=== PATIENT | male | born 1950 | race Caucasian/White ===

== ENCOUNTER 2017-03-24 13:27 | Inpatient (IN) | payer MEDICARE, OTHER ==
[~2017-03-24] VITALS: Ht 177.8 cm; Wt 166.2 kg
[2017-03-24] MEDS ORDERED: KETOROLAC 60 MG/2 ML VIAL (J1885) IM ONE (13:45)
[2017-03-24] MEDS ORDERED: CYCL10TA PO (14:48)
[2017-03-24] MEDS ORDERED: PERCOCET 5MG/325MG TAB As Ordered ONE (15:02)
[2017-03-24] MEDS ORDERED: PERCOCET 5MG/325MG TAB PO ONE (15:15)
[2017-03-24 17:50] LABS: MEAN CORPUSCULAR HEMOGLOBIN 30.4 pg (27.0-33.0); MEAN CORPUSCULAR HGB CONC 34.6 g/dl (32.0-36.5); RED CELL DISTRIBUTION WIDTH 13.5 % (11.5-14.5); WHITE BLOOD COUNT 9.1 K/mm3 (4.0-10.0)
[2017-03-24 17:58] LABS: INR 1.07
[2017-03-24 18:07] LABS: ANION GAP 8 MEQ/L (8-16); BLOOD UREA NITROGEN 28 MG/DL (7-18); CALCIUM LEVEL 8.4 MG/DL (8.8-10.2); CARBON DIOXIDE LEVEL 30 MEQ/L (21-32); CHLORIDE LEVEL 101 MEQ/L (98-107); CREATININE FOR GFR 0.84 MG/DL (0.70-1.30); GLOMERULAR FILTRATION RATE > 60.0 (>49); GLUCOSE, FASTING 122 MG/DL (80-110); POTASSIUM SERUM 4.3 MEQ/L (3.5-5.1); SODIUM LEVEL 139 MEQ/L (136-145)
[2017-03-24] MEDS ORDERED: MORPHINE 10 MG/ML 1ML VIAL IM ONE (19:30)
[2017-03-24] MEDS ORDERED: DEXTROSE 50% 50 ML SYRINGE IV PRN (21:00)
[2017-03-24] MEDS ORDERED: GLUCOSE 4 GM CHEW TABLET PO PRN (21:00)
[2017-03-24] MEDS ORDERED: GLUCAGON FOR INJ 1 MG VIAL (J1610) SC PRN (21:00)
[2017-03-24] MEDS ORDERED: VITA10005 PO (21:31)
[2017-03-24] MEDS ORDERED: METO50TA7 PO (21:31)
[2017-03-24] MEDS ORDERED: COLA100C5 PO (21:31)
[2017-03-24] MEDS ORDERED: LOSA100T36 PO (21:31)
[2017-03-24] MEDS ORDERED: INSULANT SC (21:31)
[2017-03-24] MEDS ORDERED: ASCO500T PO (21:31)
[2017-03-24] MEDS ORDERED: LIVA4TAB PO (21:31)
[2017-03-24] MEDS ORDERED: B-12100T2 PO (21:31)
[2017-03-24] MEDS ORDERED: GABA-282 PO (21:31)
[2017-03-24] MEDS ORDERED: NOVOINJ3 SQ (21:31)
[2017-03-24] MEDS ORDERED: NAPR500T3 PO (21:31)
[2017-03-24] MEDS ORDERED: FURO40TA2 PO (21:31)
[2017-03-24] MEDS ORDERED: OMEP20CA3 PO (21:31)
[2017-03-24] MEDS ORDERED: HYDR-3713 PO (21:31)
[2017-03-24] MEDS ORDERED: ASPI81TAEC PO (21:31)
[2017-03-24] MEDS ORDERED: FINA5TAB2 PO (21:31)
[2017-03-24] MEDS ORDERED: D31000TA PO (21:31)
[2017-03-24] MEDS ORDERED: METF10004 PO (21:31)
[2017-03-24] MEDS ORDERED: SERT-138 PO (21:31)
[2017-03-24] MEDS ORDERED: TERA10CA3 PO (21:31)
[2017-03-24] MEDS ORDERED: [UNRECOGNIZED DRUG - CODE] OU (21:31)
--- NOTE | 2017-03-24 22:05 | HPEPDOC ---
General Date of Admission Mar 24, 2017 at 20:52 Chief Complaint The patient is a 67-year-old male Presented to the ER with complaints of worsening back pain preventing him from walking. History of Present Illness Patient is a 67 year old male with a PMHx of IDDM2, HTN, DLP, BPH, Neuropathy, Chronic lower back pain, Depression / Anxiety and GERD who presented to the ER with worsening back pain. Patient notes that yesterday he was at a wedding and was walking more than usual with his walker. That evening he noted some pain in his back that he tried to sleep off. This morning he awoke with severe back pain that prevented him from getting out of bed. He notes that the pain occurs in his lower pain, rated the pain as aa 10/10, sharp, continuous pain, non-radiating, no alleviating factors, but aggravated with movement. He denies any motor weakness of his legs or sensory deficits. He denies any incontinence of stool or urine. He denies nausea, vomiting, chest pain, shortness of breath, cough, palpitations , abdominal pain, constipation, diarrhea or dysuria. He denies any fever or chills. He denies a headache. He denies any change in appetite or recent weight change. Home Medications Scheduled Acetaminophen/Hydrocodone (Hydrocodone/Acetaminophen 5-325 mg) 1 Tab Tab, 2 TAB PO QID, (Reported) MDD 4 Ascorbic Acid (Ascorbic Acid) 500 Mg Tab, 500 MG PO DAILY, (Reported) Aspirin (Aspirin EC) 81 Mg Tabec, 81 MG PO DAILY, (Reported) Carboxymethylcellulose Sodium (Carboxymethylcellulose So) 1 Gra Gra, 1 % OU BID, (Reported) Cholecalciferol (D3) 1,000 Unit Tab, 1,000 UNIT PO DAILY, (Reported) Cyanocobalamin (B-12) 100 Mcg Tab, 100 MCG PO BID, (Reported) Docusate Sodium (Colace) 100 Mg Cap, 100 MG PO BID, (Reported) Finasteride (Finasteride) 5 Mg Tab, 5 MG PO DAILY, (Reported) Furosemide (Furosemide) 40 Mg Tab, 60 MG PO DAILY, (Reported) Gabapentin (Gabapentin) 300 Mg Cap, 1,200 MG PO TID, (Reported) Insulin Glargine (Lantus) 1 Units/0.01 Ml Susp, 62 UNITS SC QHS, (Reported) Losartan Potassium (Losartan Potassium) 100 Mg Tab, 100 MG PO DAILY, (Reported) Metformin Hydrochloride (Metformin HCl) 1,000 Mg Tab, 1,000 MG PO BID, (Reported ) Metoprolol Tartrate (Metoprolol Tartrate) 50 Mg Tab, 25 MG PO BID, (Reported) Naproxen (Naproxen) 500 Mg Tab, 500 MG PO BID, (Reported) Omeprazole (Omeprazole) 20 Mg Cap, 40 MG PO DAILY, (Reported) Pitavastatin Calcium (Livalo) 4 Mg Tab, 4 MG PO QHS, (Reported) Sertraline HCl (Sertraline HCl) 100 Mg Tab, 100 MG PO QHS, (Reported) Terazosin Hcl (Terazosin HCl) 10 Mg Cap, 10 MG PO DAILY, (Reported) Vitamin E (Vitamin E) 1,000 Unit Cap, 1,000 UNIT PO DAILY, (Reported) Scheduled PRN Cyclobenzaprine HCl (Cyclobenzaprine HCl) 10 Mg Tab, 10 MG PO TID PRN for MUSCLE SPASMS Insulin Aspart (Novolog Flexpen) 100 Unit/Ml Inj, 1 UNITS SUBQ AC PRN for ELEVATED GLUCOSE, (Reported) Allergies Coded Allergies: No Known Allergies (Unverified , 03/24/17) Past Medical History Medical History IDDM2, HTN, DLP, BPH, Neuropathy, Chronic lower back pain, Depression / Anxiety and GERD Surgical History None reported Family History - Non-contributory Social History - Denies the use of illicit drugs; Social alcohol use; Quit smoking 40 years ago ; smoker of 20 years at 1 ppd - Denies recent travel or sick contacts - Lives with - 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; 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 Review of Symptoms Other systems 10 point review of systems complete; negative otherwise stated in HPI Vital Signs - Vitals: BP 133/78, HR 85, RR 16, Sat 96%RA, Temp 99.2F - General: Lying in bed, No acute distress, Speaking in full sentences, AAOx3 - HEENT: NC, AT, PERRLA, EOMI - CVS: RRR, +S1S2 - Lungs: Fair air entry bilaterally, No appreciable wheezing or crackles - Abdomen: Soft, Non-distended, Non-tender, + Bowel sounds x 4 - Extremities: + PPx4, No lower extremity edema, No calf tenderness - Neuro: Moves all four extremities; reduced movement of bilateral upper legs 2/ 2 pain; 5/5 at feet bilateraly -- Sensation intact bilaterally - Skin: No visible rashes Laboratory Data Labs 24H Laboratory Tests 2 03/24/17 17:34: Prothrombin Time 14.1, Prothromb Time International Ratio 1.07, Urine Appearance HAZY, Urine Color KATINA, Urine pH 5.0, Urine Specific [place] 1.031, Urine Protein 1+H, Urine Glucose (UA) NEGATIVE, Urine Ketones NEGATIVE, Urine Urobilinogen 2.0H, Urine Bilirubin NEGATIVE, Urine Leukocyte Esterase TRACEH, Urine Blood NEGATIVE, Urine Nitrite NEGATIVE, Urine WBC (Auto) 4H, Urine RBC ( Auto) 6H, Urine Hyaline Casts (Auto) 0, Urine Bacteria (Auto) NEGATIVE, Urine Squamous Epithelial Cells 4, Urine Mucus (Auto) MODERATE, Urine Sperm (Auto) , Anion Gap 8, Glomerular Filtration Rate > 60.0, Blood Urea Nitrogen 28H, Creatinine 0.84, Sodium Level 139, Potassium Level 4.3, Chloride Level 101, Carbon Dioxide Level 30, Calcium Level 8.4L CBC/BMP Laboratory Tests 03/24/17 17:34 Red Blood Count 3.87 L, Mean Corpuscular Volume 88.0, Mean Corpuscular Hemoglobin 30.4, Mean Corpuscular Hemoglobin Concent 34.6, Red Cell Distribution Width 13.5, Calcium Level 8.4 L Plan / VTE VTE Prophylaxis Ordered?: Yes Plan Plan Acute on chronic intractable back pain - likely 2/2 acute exacerbation after over exerting himself, less likely 2/2 acute discitis - Presented with worsening back pain, unable to ambulate - Physical without any focal motor weakness of sensory deficit - No incontinence of stool or urine - No fevers - No leukocytosis - CT Lumbar spine w/o contrast: advanced multilevel degenerative changes, change at L3/4, irregular destructive changes, acute vs. chronic discitis, no further acute fx/compression injury - Will c/w pain control for now - Will order physical therapy for evaluation and treatment Normocytic anemia - No baseline available - Will monitor for now IDDM2 - c/w ISS and Levemir 35 QHS HTN - c/w Furosemide, Losartan and Metoprolol tartrate DLP - c/w Atorvastatin (outpatient pitavastatin) BPH - c/ w Finasteride and Terazosin Neuropathy - c/w Gabapentin Depression / Anxiety - c/w Sertraline GERD - c/w Omeprazole DVT prophylaxis - Will start BAUTISTA Guzmán MD Mar 24, 2017 22:05
[2017-03-24] MEDS: PERCOCET 5MG/325MG TAB PO PRN (22:16)
[2017-03-24 22:30] VITALS: BP 142/69
[2017-03-24] MEDS: TERAZOSIN 5 MG CAP PO SCH (23:46)
[2017-03-24] MEDS: SERTRALINE 100 MG TAB PO SCH (23:46)
[2017-03-24] MEDS: ATORVASTATIN 10 MG TAB PO SCH (23:47)
[2017-03-24] MEDS: HumaLOG INSULIN (NovoLOG) PER UNIT SC SCH (23:47)
[2017-03-24] MEDS: METOPROLOL TART 25 MG TABLET PO SCH (23:47)
[2017-03-24] MEDS: LEVEMIR (INSULIN DETEMIR) 1 UNITS/0.01ML SC SCH (23:48)
[2017-03-25] MEDS: GABAPENTIN 300 MG CAP PO SCH ×3 (01:32→20:32)
[2017-03-25 02:00] VITALS: BP 125/68
[2017-03-25] MEDS: PERCOCET 5MG/325MG TAB PO PRN ×5 (02:14→20:33)
[2017-03-25 06:00] VITALS: BP 139/74
[2017-03-25 07:25] LABS: BASO % 0.3 % (0.0-1.0); EOS % 0.5 % (0.0-3.0); LARGE UNSTAINED CELL # 0.1 K/mm3 (0.0-0.4); LYMPH # 0.9 K/mm3 (1.5-4.5); MEAN CORPUSCULAR HEMOGLOBIN 29.4 pg (27.0-33.0); MEAN CORPUSCULAR HGB CONC 33.6 g/dl (32.0-36.5); MEAN CORPUSCULAR VOLUME 87.5 fl (80.0-96.0); MONO # 0.6 K/mm3 (0.0-0.8); MONO % 6.8 % (0.0-5.0); NEUTROPHILS # 7.6 K/mm3 (1.8-7.7); NEUTROPHILS % 82.4 % (36.0-66.0); PLATELET COUNT, AUTOMATED 175 k/mm3 (150-450); RED CELL DISTRIBUTION WIDTH 13.5 % (11.5-14.5); WHITE BLOOD COUNT 9.3 K/mm3 (4.0-10.0)
[2017-03-25] MEDS: HumaLOG INSULIN (NovoLOG) PER UNIT SC SCH ×4 (07:30→20:37)
[2017-03-25 07:40] LABS: ALBUMIN 3.3 GM/DL (3.2-5.2); ALBUMIN/GLOBULIN RATIO 0.87 (1.00-1.93); ALKALINE PHOSPHATASE 79 U/L (45-117); ALT/SGPT 18 U/L (12-78); ANION GAP 5 MEQ/L (8-16); AST/SGOT 14 U/L (15-37); BILIRUBIN,TOTAL 1.1 MG/DL (0.2-1.0); BLOOD UREA NITROGEN 22 MG/DL (7-18); CARBON DIOXIDE LEVEL 32 MEQ/L (21-32); CHLORIDE LEVEL 99 MEQ/L (98-107); CREATININE FOR GFR 0.74 MG/DL (0.70-1.30); GLOMERULAR FILTRATION RATE > 60.0 (>49); GLUCOSE, FASTING 159 MG/DL (80-110); POTASSIUM SERUM 3.9 MEQ/L (3.5-5.1); SODIUM LEVEL 136 MEQ/L (136-145); TOTAL PROTEIN 7.1 GM/DL (6.4-8.2)
--- NOTE | 2017-03-25 07:50 | IPN ---
DATE: 03/25/2017 A 67-year-old gentleman seen at bedside. He follows with [facility], has had chronic issues with lumbar back pain, repeated strains and likely due to his morbid obesity, and he says that he does have some degenerative issues with his back, osteoarthritis. Basically, he was admitted last night because he was unable to climb his five steps into his house and his insisted that we keep him for better pain control. He feels that he is under better control today. He denies chest pain, shortness of breath, abdominal pain. No nausea or vomiting. He denies any radiation of pain or radiculopathy. No saddle paresthesias. Bowel movements are regular. He is voiding fine. He denies any bladder or bowel incontinence. OBJECTIVE: Temperature is 98.9, pulse 74, respiratory rate 18, blood pressure 139/74, SPO2 is 95% on room air. General: The patient appears to be in no acute distress. He is alert, pleasant. HEENT: Unremarkable. Lungs: Clear. Heart: Regular rate and rhythm. Abdomen is obese, soft, nontender, nondistended with positive bowel sounds. No masses, no rebound. Extremities: No edema. No calf tenderness. No motor or sensory deficits. ASSESSMENT AND PLAN: 1. Intractable/acute on chronic low back pain likely from acute exacerbation. He does not demonstrate any motor or sensory deficits. No bladder or bowel incontinence. He is afebrile. Has had no leukocytosis. Previous CT lumbar spine with contrast: Advanced multilevel degenerative changes, change of L3-L4, irregular destructive changes, acute versus chronic diskitis but no further acute fracture or compression injury. I am doubtful that this is a diskitis since the patient is afebrile. He has had a normal white count. His sedimentation rate and C-reactive protein (CRP) do appear to be slightly elevated; however, symptom ramesh, he is much improved today. I would like to see how he is getting along. If he does well with physical therapy, his labs look good, will likely discharge him home with services versus watching him another 24 hours. 2. Chronic anemia. Continue to monitor hemoglobin and hematocrit. 3. Diabetes. Continue with sliding scale insulin coverage and Levemir. 4. Hypertension. Continue metoprolol, losartan, furosemide. 5. Dyslipidemia. Continue Lipitor. 6. BPH. Continue finasteride, terazosin. 7. Chronic neuropathy, likely related to diabetes. Continue with gabapentin. 8. Depression, anxiety, stable on Zoloft. 9. Gastroesophageal reflux disease (GERD). Continue omeprazole. 10. Deep vein thrombosis (DVT) prophylaxis. Lovenox. DISPOSITION: Will see how he does with physical therapy. Repeat his labs today and go from there.
[2017-03-25] MEDS: METOPROLOL TART 25 MG TABLET PO SCH ×2 (08:01→20:35)
[2017-03-25] MEDS: FINASTERIDE 5 MG TAB PO SCH (08:01)
[2017-03-25] MEDS: OMEPRAZOLE 20 MG CAP PO SCH (08:01)
[2017-03-25] MEDS: LOSARTAN 50 MG TAB PO SCH (08:01)
[2017-03-25] MEDS: FUROSEMIDE 40 MG TAB PO SCH (08:03)
[2017-03-25] MEDS: ENOXAPARIN 40 MG/0.4 ML SYRINGE (J1650) SC SCH (08:04)
[2017-03-25 10:00] VITALS: BP 118/65
[2017-03-25] MEDS: CYCLOBENZAPRINE 10 MG TAB PO PRN ×2 (11:56→20:32)
--- NOTE | 2017-03-25 13:00 | REP ---
Clinical: Back pain. Technique: Axial noncontrast images from T9 through mid sacrum with coronal and sagittal re-formations. Comparison: None. Findings: Straightening of normal lordosis and advanced multilevel degenerative disc osteophyte complexes are noted throughout the visualized lower thoracic through lumbosacral spine. Findings include bridging osteophytes, endplate sclerosis with disc space narrowing and hypertrophic facet changes. There is no evidence for acute fracture / compression injury or subluxation. A somewhat mottled destructive appearance to the endplates at the L3-L4 level are appreciated with contour abnormality and sclerotic changes to the residual margins as well as somewhat irregular widening to the intervening disc space. Findings suggest acute and/or chronic diskitis and should be correlated clinically. The surrounding paraspinous and paravertebral soft tissues are grossly unremarkable. No significant swelling, fluid collection or mass is appreciated. Atherosclerotic changes to the visualized aorta identified without aneurysm. Impression: 1. Irregular, destructive changes at the L3-L4 level as described above suggesting acute and/or chronic diskitis. Correlation is recommended. Consider MRI with contrast if necessary. 2. Remainder of the examination demonstrates advanced multilevel degenerative changes as described above. No acute compression fracture or subluxation appreciated. Signed by Damon Asher MD 03/25/2017 12:52 P
[2017-03-25 14:00] VITALS: BP 118/70
[2017-03-25 18:00] VITALS: BP 140/61
[2017-03-25 20:13] VITALS: BP 143/61
[2017-03-25] MEDS: ATORVASTATIN 10 MG TAB PO SCH (20:32)
[2017-03-25] MEDS: SERTRALINE 100 MG TAB PO SCH (20:32)
[2017-03-25] MEDS: TERAZOSIN 5 MG CAP PO SCH (20:34)
[2017-03-25] MEDS: LEVEMIR (INSULIN DETEMIR) 1 UNITS/0.01ML SC SCH (20:36)
[2017-03-26] MEDS: PERCOCET 5MG/325MG TAB PO PRN ×5 (01:26→19:28)
[2017-03-26 02:00] VITALS: BP 145/69
[2017-03-26] MEDS: CYCLOBENZAPRINE 10 MG TAB PO PRN (05:52)
[2017-03-26 06:00] VITALS: BP 159/79
[2017-03-26 07:24] LABS: BASO % 0.4 % (0.0-1.0); EOS # 0.1 K/mm3 (0.0-0.50); EOS % 1.7 % (0.0-3.0); LARGE UNSTAINED CELL # 0.1 K/mm3 (0.0-0.4); LARGE UNSTAINED CELL % 1.4 % (0.0-4.0); LYMPH # 0.9 K/mm3 (1.5-4.5); LYMPH % 11.5 % (24.0-44.0); MEAN CORPUSCULAR HEMOGLOBIN 29.6 pg (27.0-33.0); MEAN CORPUSCULAR HGB CONC 33.6 g/dl (32.0-36.5); MEAN CORPUSCULAR VOLUME 87.9 fl (80.0-96.0); MONO # 0.4 K/mm3 (0.0-0.8); MONO % 5.8 % (0.0-5.0); NEUTROPHILS # 5.8 K/mm3 (1.8-7.7); NEUTROPHILS % 79.1 % (36.0-66.0); PLATELET COUNT, AUTOMATED 182 k/mm3 (150-450); RED CELL DISTRIBUTION WIDTH 13.6 % (11.5-14.5); WHITE BLOOD COUNT 7.3 K/mm3 (4.0-10.0)
[2017-03-26 07:48] LABS: ALBUMIN 3.2 GM/DL (3.2-5.2); ALBUMIN/GLOBULIN RATIO 0.94 (1.00-1.93); ALKALINE PHOSPHATASE 85 U/L (45-117); ALT/SGPT 18 U/L (12-78); ANION GAP 6 MEQ/L (8-16); AST/SGOT 14 U/L (15-37); BILIRUBIN,TOTAL 0.8 MG/DL (0.2-1.0); BLOOD UREA NITROGEN 18 MG/DL (7-18); CALCIUM LEVEL 9.1 MG/DL (8.8-10.2); CARBON DIOXIDE LEVEL 33 MEQ/L (21-32); CHLORIDE LEVEL 100 MEQ/L (98-107); CREATININE FOR GFR 0.66 MG/DL (0.70-1.30); GLOMERULAR FILTRATION RATE > 60.0 (>49); GLUCOSE, FASTING 122 MG/DL (80-110); POTASSIUM SERUM 4.2 MEQ/L (3.5-5.1); SODIUM LEVEL 139 MEQ/L (136-145); TOTAL PROTEIN 6.6 GM/DL (6.4-8.2)
[2017-03-26] MEDS: OMEPRAZOLE 20 MG CAP PO SCH (08:27)
[2017-03-26] MEDS: HumaLOG INSULIN (NovoLOG) PER UNIT SC SCH ×4 (08:27→20:43)
[2017-03-26] MEDS: LOSARTAN 50 MG TAB PO SCH (08:27)
[2017-03-26] MEDS: FINASTERIDE 5 MG TAB PO SCH (08:27)
[2017-03-26] MEDS: GABAPENTIN 300 MG CAP PO SCH ×2 (08:28→20:43)
[2017-03-26] MEDS: METOPROLOL TART 25 MG TABLET PO SCH ×2 (08:28→20:45)
[2017-03-26] MEDS: FUROSEMIDE 40 MG TAB PO SCH (08:29)
[2017-03-26] MEDS: ENOXAPARIN 40 MG/0.4 ML SYRINGE (J1650) SC SCH (09:00)
[2017-03-26 10:00] VITALS: BP 133/73
[2017-03-26] MEDS: MORPHINE 15 MG SA TAB PO SCH ×2 (10:32→20:44)
[2017-03-26] MEDS: SENOKOT S TAB PO SCH ×2 (10:32→20:44)
--- NOTE | 2017-03-26 13:32 | IPN ---
DATE: 03/26/2017 Mr. Mark is having continuing pain today. No chest pain, no shortness of breath. He does get temporary relief from Percocet, it is not long lasting. Temperature is 98.4, pulse 81, respiratory rate 18, blood pressure 159/79, 95% on room air. Intake and output notable for a negative fluid balance of -515. Now bowel movements noted since his arrival. Body mass index (BMI) 54.6. He is awake, appropriately interactive, somewhat uncomfortable. Mucous membranes moist. Neck thick. Breathing is symmetrical and diminished, rested. No accessory muscle use. Heart is regular rate and rhythm. Abdomen is soft, doughy nontender. Moving all four extremities. Strength is grossly symmetrical. Sensation is grossly intact. White cell count 7.3, hemoglobin 11, platelets 182, BUN 18, creatinine 0.66. My assessment is as follows: This is a 67-year-old with acute on chronic back pain without any obvious neurologic deficits. Plan is as follows: 1. Musculoskeletal. Plan is for an MRI when open MRI is available. Continues with physical therapy. I did increase his pain medication to include long acting morphine. He is somewhat narcotic resistant based on his home use of opiates. 2. Patient has chronic anemia. 3. Patient has diabetes on sliding insulin and Levemir. 4. Patient has hypertension. 5. Patient has dyslipidemia. 6. Patient has benign prostatic hypertrophy (BPH). 7. Patient has chronic neuropathy on gabapentin. I have discussed the case with the patient and family at the bedside.
[2017-03-26 14:00] VITALS: BP 102/59
[2017-03-26 16:00] VITALS: BP 124/66
[2017-03-26] MEDS: MOM 30ML SUSPENSION UDC PO PRN (20:42)
[2017-03-26] MEDS: ATORVASTATIN 10 MG TAB PO SCH (20:43)
[2017-03-26] MEDS: LEVEMIR (INSULIN DETEMIR) 1 UNITS/0.01ML SC SCH (20:43)
[2017-03-26] MEDS: TERAZOSIN 5 MG CAP PO SCH (20:44)
[2017-03-26] MEDS: SERTRALINE 100 MG TAB PO SCH (20:44)
[2017-03-26 22:00] VITALS: BP 154/96
[2017-03-27] MEDS: CYCLOBENZAPRINE 10 MG TAB PO PRN (00:07)
[2017-03-27] MEDS: PERCOCET 5MG/325MG TAB PO PRN ×5 (00:07→22:10)
[2017-03-27 02:00] VITALS: BP 151/67
[2017-03-27 06:00] VITALS: BP 153/73
[2017-03-27 07:06] LABS: BASO % 0.2 % (0.0-1.0); EOS # 0.1 K/mm3 (0.0-0.50); LARGE UNSTAINED CELL # 0.2 K/mm3 (0.0-0.4); LARGE UNSTAINED CELL % 2.3 % (0.0-4.0); LYMPH # 0.9 K/mm3 (1.5-4.5); LYMPH % 13.6 % (24.0-44.0); MEAN CORPUSCULAR HEMOGLOBIN 29.6 pg (27.0-33.0); MEAN CORPUSCULAR HGB CONC 33.8 g/dl (32.0-36.5); MEAN CORPUSCULAR VOLUME 87.6 fl (80.0-96.0); MONO # 0.4 K/mm3 (0.0-0.8); MONO % 6.2 % (0.0-5.0); NEUTROPHILS % 75.7 % (36.0-66.0); PLATELET COUNT, AUTOMATED 213 k/mm3 (150-450); RED CELL DISTRIBUTION WIDTH 13.2 % (11.5-14.5); WHITE BLOOD COUNT 6.6 K/mm3 (4.0-10.0)
[2017-03-27 07:27] LABS: ALBUMIN 2.8 GM/DL (3.2-5.2); ALKALINE PHOSPHATASE 78 U/L (45-117); ALT/SGPT 16 U/L (12-78); ANION GAP 9 MEQ/L (8-16); AST/SGOT 11 U/L (15-37); BILIRUBIN,TOTAL 0.8 MG/DL (0.2-1.0); BLOOD UREA NITROGEN 17 MG/DL (7-18); CALCIUM LEVEL 9.1 MG/DL (8.8-10.2); CARBON DIOXIDE LEVEL 30 MEQ/L (21-32); CHLORIDE LEVEL 100 MEQ/L (98-107); CREATININE FOR GFR 0.59 MG/DL (0.70-1.30); GLOMERULAR FILTRATION RATE > 60.0 (>49); GLUCOSE, FASTING 140 MG/DL (80-110); MAGNESIUM LEVEL 2.1 MG/DL (1.8-2.4); POTASSIUM SERUM 4.1 MEQ/L (3.5-5.1); SODIUM LEVEL 139 MEQ/L (136-145); TOTAL PROTEIN 6.8 GM/DL (6.4-8.2)
[2017-03-27] MEDS: HumaLOG INSULIN (NovoLOG) PER UNIT SC SCH ×4 (08:53→21:00)
[2017-03-27] MEDS: FUROSEMIDE 40 MG TAB PO SCH (08:54)
[2017-03-27] MEDS: SENOKOT S TAB PO SCH ×2 (08:54→21:26)
[2017-03-27] MEDS: OMEPRAZOLE 20 MG CAP PO SCH (08:54)
[2017-03-27] MEDS: METOPROLOL TART 25 MG TABLET PO SCH ×2 (08:54→21:27)
[2017-03-27] MEDS: ENOXAPARIN 40 MG/0.4 ML SYRINGE (J1650) SC SCH (08:54)
[2017-03-27] MEDS: FINASTERIDE 5 MG TAB PO SCH (08:57)
[2017-03-27] MEDS: GABAPENTIN 300 MG CAP PO SCH ×2 (08:57→21:26)
[2017-03-27] MEDS: MORPHINE 15 MG SA TAB PO SCH ×2 (08:57→21:28)
[2017-03-27] MEDS: LOSARTAN 50 MG TAB PO SCH (08:57)
[2017-03-27 14:00] VITALS: BP 121/56
[2017-03-27] MEDS ORDERED: MAGNESIUM CITRATE 300 ML BTL PO ONE (14:00)
--- NOTE | 2017-03-27 14:06 | IPN ---
DATE: 03/27/2017 Pain is better controlled from yesterday, but he still has discomfort. He has not moved his bowels and is requesting further assistance with that. PHYSICAL EXAMINATION: Temperature is 96.9, pulse 82, respiratory rate 18, blood pressure 153/73. He is awake, appropriately interactive, pleasantly conversant. Good historian. Heart is distant sounding. Normal S1, S2. Breathing is symmetrical and rested. I:E ratio is 1:3. No costovertebral angle tenderness. No sacral emergency department . Abdomen is soft, doughy nontender. Rectal examination shows good rectal tone. Sensation is intact. White cell count 6.6, hemoglobin 11.4, BUN 17, creatinine 0.59, C-reactive protein is increased to 17. My assessment is as follows: This is a 67-year-old with acute on chronic back pain without any obvious neurologic deficits. Plan is as follows: 1. Musculoskeletal. Plan is for open MRI on 03/29/2017. There are no acute neurologic deficits noted. We will continue with pain management as currently ordered. 2. Patient has constipation and has magnesium citrate. Continue his currently regimen. 3. Patient has diabetes on sliding insulin and Levemir. 4. Patient has hypertension. 5. Patient has dyslipidemia. 6. Patient has benign prostatic hypertrophy (BPH). 7. Patient has chronic neuropathy on gabapentin.
[2017-03-27 18:00] VITALS: BP 165/90
[2017-03-27 20:00] VITALS: BP 123/69
[2017-03-27] MEDS: SERTRALINE 100 MG TAB PO SCH (21:26)
[2017-03-27] MEDS: ATORVASTATIN 10 MG TAB PO SCH (21:26)
[2017-03-27] MEDS: TERAZOSIN 5 MG CAP PO SCH (21:27)
[2017-03-27] MEDS: LEVEMIR (INSULIN DETEMIR) 1 UNITS/0.01ML SC SCH (21:28)
[2017-03-28] VITALS: BP 121/70
[2017-03-28 04:00] VITALS: BP 142/62
[2017-03-28] MEDS: PERCOCET 5MG/325MG TAB PO PRN ×4 (06:17→22:44)
[2017-03-28] MEDS: MOM 30ML SUSPENSION UDC PO PRN (06:25)
[2017-03-28 06:52] LABS: BASO % 0.4 % (0.0-1.0); EOS # 0.2 K/mm3 (0.0-0.50); EOS % 3.8 % (0.0-3.0); LARGE UNSTAINED CELL # 0.1 K/mm3 (0.0-0.4); LARGE UNSTAINED CELL % 1.6 % (0.0-4.0); LYMPH # 1.2 K/mm3 (1.5-4.5); LYMPH % 18.4 % (24.0-44.0); MEAN CORPUSCULAR HGB CONC 32.5 g/dl (32.0-36.5); MEAN CORPUSCULAR VOLUME 89.1 fl (80.0-96.0); MONO # 0.4 K/mm3 (0.0-0.8); MONO % 6.6 % (0.0-5.0); NEUTROPHILS # 4.1 K/mm3 (1.8-7.7); NEUTROPHILS % 69.3 % (36.0-66.0); PLATELET COUNT, AUTOMATED 218 k/mm3 (150-450); RED CELL DISTRIBUTION WIDTH 13.4 % (11.5-14.5); WHITE BLOOD COUNT 5.9 K/mm3 (4.0-10.0)
[2017-03-28 07:25] LABS: ALBUMIN/GLOBULIN RATIO 0.86 (1.00-1.93); ALKALINE PHOSPHATASE 94 U/L (45-117); ALT/SGPT 17 U/L (12-78); ANION GAP 9 MEQ/L (8-16); AST/SGOT 10 U/L (15-37); BILIRUBIN,TOTAL 0.8 MG/DL (0.2-1.0); BLOOD UREA NITROGEN 17 MG/DL (7-18); CARBON DIOXIDE LEVEL 30 MEQ/L (21-32); CHLORIDE LEVEL 98 MEQ/L (98-107); CREATININE FOR GFR 0.59 MG/DL (0.70-1.30); GLOMERULAR FILTRATION RATE > 60.0 (>49); GLUCOSE, FASTING 158 MG/DL (80-110); MAGNESIUM LEVEL 2.1 MG/DL (1.8-2.4); POTASSIUM SERUM 4.2 MEQ/L (3.5-5.1); SODIUM LEVEL 137 MEQ/L (136-145); TOTAL PROTEIN 6.5 GM/DL (6.4-8.2)
[2017-03-28] MEDS: HumaLOG INSULIN (NovoLOG) PER UNIT SC SCH ×4 (08:36→21:30)
[2017-03-28] MEDS: OMEPRAZOLE 20 MG CAP PO SCH (08:37)
[2017-03-28] MEDS: GABAPENTIN 300 MG CAP PO SCH ×2 (08:37→21:28)
[2017-03-28] MEDS: FINASTERIDE 5 MG TAB PO SCH (08:37)
[2017-03-28] MEDS: ENOXAPARIN 40 MG/0.4 ML SYRINGE (J1650) SC SCH (08:37)
[2017-03-28] MEDS: LOSARTAN 50 MG TAB PO SCH (08:37)
[2017-03-28] MEDS: FUROSEMIDE 40 MG TAB PO SCH (08:39)
[2017-03-28] MEDS: MORPHINE 15 MG SA TAB PO SCH ×2 (08:40→21:29)
[2017-03-28] MEDS: METOPROLOL TART 25 MG TABLET PO SCH ×2 (08:40→21:28)
[2017-03-28] MEDS: SENOKOT S TAB PO SCH ×2 (08:40→21:28)
[2017-03-28 10:00] VITALS: BP 155/75
[2017-03-28] MEDS ORDERED: MAGNESIUM CITRATE 300 ML BTL PO ONE (11:00)
--- NOTE | 2017-03-28 11:53 | IPN ---
DATE: 03/28/2017 Mr. Mark is complaining of constipation today. Bowel regimen yesterday was not helpful. Apparently at home, he does apparently give himself enemas. Currently without chest pain. Back pain is better controlled. He was able to sleep last night. Temperature 97, pulse 79, respiratory rate 18, blood pressure 155/75, 92% on room air. Intake and output notable for a positive fluid balance of 360. He is awake, appropriately interactive, good historian. Mucous membranes moist. Neck is thick, supple. Breathing is symmetrical and rested. Heart is in a regular rate and rhythm. Abdomen soft, doughy, nontender. White cell count 5.9, hemoglobin 11.5 and platelets of 218. BUN 17, creatinine 0.5. My assessment is as follows: This is a 67-year-old with acute on chronic back pain without obvious neurologic deficits. Plan is as follows: 1. Musculoskeletal. We are arranging a transport to the open MRI for tomorrow. On physical examination, the patient has no acute neurologic deficits noted, and he also has no neurologic complaints apart from constipation, which at times is a chronic issue for him. We will continue pain management as currently ordered. 2. Patient has constipation and will be given magnesium citrate. Offered a tap water enema and then if that is not effective will give him a half gallon of GoLYTELY. 3. Patient has diabetes. On sliding insulin and Levemir. 4. Patient has hypertension. 5. Patient has dyslipidemia. 6. Patient has benign prostatic hypertrophy (BPH). 7. Patient has chronic neuropathy. On gabapentin. 8. Deep venous thrombosis (DVT) prophylaxis is Lovenox.
[2017-03-28 14:00] VITALS: BP 133/60
[2017-03-28 18:00] VITALS: BP 125/68
[2017-03-28 21:00] VITALS: BP 135/62
[2017-03-28] MEDS: SERTRALINE 100 MG TAB PO SCH (21:28)
[2017-03-28] MEDS: ATORVASTATIN 10 MG TAB PO SCH (21:28)
[2017-03-28] MEDS: LEVEMIR (INSULIN DETEMIR) 1 UNITS/0.01ML SC SCH (21:30)
[2017-03-28] MEDS: TERAZOSIN 5 MG CAP PO SCH (21:33)
[2017-03-29 02:00] VITALS: BP 128/68
[2017-03-29] MEDS: PERCOCET 5MG/325MG TAB PO PRN ×4 (05:49→23:54)
[2017-03-29 06:00] VITALS: BP 149/72
[2017-03-29 06:45] LABS: BASO % 0.6 % (0.0-1.0); EOS # 0.3 K/mm3 (0.0-0.50); EOS % 5.8 % (0.0-3.0); LARGE UNSTAINED CELL # 0.1 K/mm3 (0.0-0.4); LARGE UNSTAINED CELL % 1.9 % (0.0-4.0); LYMPH # 1.1 K/mm3 (1.5-4.5); LYMPH % 20.2 % (24.0-44.0); MEAN CORPUSCULAR HEMOGLOBIN 29.6 pg (27.0-33.0); MEAN CORPUSCULAR HGB CONC 32.8 g/dl (32.0-36.5); MEAN CORPUSCULAR VOLUME 90.1 fl (80.0-96.0); MONO # 0.3 K/mm3 (0.0-0.8); MONO % 6.6 % (0.0-5.0); NEUTROPHILS # 3.2 K/mm3 (1.8-7.7); PLATELET COUNT, AUTOMATED 204 k/mm3 (150-450); RED CELL DISTRIBUTION WIDTH 13.3 % (11.5-14.5); WHITE BLOOD COUNT 4.9 K/mm3 (4.0-10.0)
[2017-03-29 07:18] LABS: ALBUMIN 2.7 GM/DL (3.2-5.2); ALBUMIN/GLOBULIN RATIO 0.64 (1.00-1.93); ALKALINE PHOSPHATASE 87 U/L (45-117); ALT/SGPT 20 U/L (12-78); ANION GAP 8 MEQ/L (8-16); AST/SGOT 12 U/L (15-37); BILIRUBIN,TOTAL 0.6 MG/DL (0.2-1.0); BLOOD UREA NITROGEN 18 MG/DL (7-18); CALCIUM LEVEL 9.1 MG/DL (8.8-10.2); CARBON DIOXIDE LEVEL 32 MEQ/L (21-32); CHLORIDE LEVEL 98 MEQ/L (98-107); CREATININE FOR GFR 0.71 MG/DL (0.70-1.30); GLOMERULAR FILTRATION RATE > 60.0 (>49); GLUCOSE, FASTING 189 MG/DL (80-110); MAGNESIUM LEVEL 1.9 MG/DL (1.8-2.4); POTASSIUM SERUM 4.3 MEQ/L (3.5-5.1); SODIUM LEVEL 138 MEQ/L (136-145); TOTAL PROTEIN 6.9 GM/DL (6.4-8.2)
[2017-03-29] MEDS: ENOXAPARIN 40 MG/0.4 ML SYRINGE (J1650) SC SCH (08:39)
[2017-03-29] MEDS: FINASTERIDE 5 MG TAB PO SCH (08:39)
[2017-03-29] MEDS: HumaLOG INSULIN (NovoLOG) PER UNIT SC SCH ×4 (08:39→21:25)
[2017-03-29] MEDS: LOSARTAN 50 MG TAB PO SCH (08:40)
[2017-03-29] MEDS: GABAPENTIN 300 MG CAP PO SCH ×2 (08:40→20:25)
[2017-03-29] MEDS: OMEPRAZOLE 20 MG CAP PO SCH (08:40)
[2017-03-29] MEDS: FUROSEMIDE 40 MG TAB PO SCH (08:41)
[2017-03-29] MEDS: SENOKOT S TAB PO SCH ×2 (08:41→20:25)
[2017-03-29] MEDS: MORPHINE 15 MG SA TAB PO SCH ×2 (08:41→20:24)
[2017-03-29] MEDS: METOPROLOL TART 25 MG TABLET PO SCH ×2 (08:41→20:26)
[2017-03-29] MEDS ORDERED: IPRATROPIUM 0.5MG/ALBUTEROL 2.5MG INH SOL UD 3ML (DUONEB)(J7620) NEB PRN (09:30)
[2017-03-29 10:00] VITALS: BP 115/56
[2017-03-29 14:00] VITALS: BP 116/64
--- NOTE | 2017-03-29 15:45 | IPN ---
DATE: 03/29/2017 SUBJECTIVE: The patient tells me that his back pain is very slowly improving. He is able to stand but with significant pain. Tells me it is better than it was 3 days ago, but his improvement has been very slow. Denies chest pain, fevers, chills, nausea, vomiting, or diarrhea. OBJECTIVE: VITAL SIGNS: Temperature 97.1, pulse 73, respiratory rate 18, blood pressure 115/56, oxygen saturation 99% on room air. GENERAL: He is a super morbidly obese man lying in bed at a 60-degree angle watching television. He does not appear to be in any distress whatsoever. HEENT: Cranial nerves II-XII are grossly intact. He has moist mucous membranes and a large neck. CARDIOVASCULAR: S1, S2. RESPIRATORY: Fairly clear, although cardiovascular and respiratory breath sounds are distant secondary to body habitus. ABDOMEN: Grossly obese. Abdomen is soft and nontender. EXTREMITIES: No clubbing and cyanosis. There is trace edema bilaterally and evidence of chronic venous stasis in bilateral lower extremities. LABORATORY STUDIES: WBC 4.9, hemoglobin 11.2, hematocrit 34.1, platelet count 204. Chemistry panel: Sodium 138, potassium 4.3, chloride 98, bicarbonate 32, BUN 18, creatinine 0.7. CRP is 11, down from 17 two days earlier. No new imaging. ASSESSMENT AND PLAN: This is a 67-year-old man with acute on chronic back pain. 1. Acute on chronic back pain. The patient is scheduled for an open MRI later this afternoon. There are no acute neurological deficits. His pain is being controlled with MS Contin 15 twice a day, Flexeril, Percocet. Appears to be providing him quite adequate control. I suspect he will need some subacute rehabilitation placement, as he is improving, however, slowly. 2. Constipation. Continue with his bowel regimen of milk of magnesia, Senokot. I will encourage him to gradually wean himself from the narcotics as this is likely worsening his constipation. 3. Diabetes, on sliding scale, insulin Levemir. 4. Hypertension, stable. He is on losartan and metoprolol. 5. Dyslipidemia. He is on Lipitor. 6. Benign prostatic hypertrophy (BPH). The patient is on Terazosin and Proscar. 7. Neuropathy. The patient is on gabapentin. 8. Gastroesophageal reflux disease. The patient is on omeprazole. 9. Mood disorder. The patient is on sertraline. 10. Deep vein thrombosis (DVT) prophylaxis. He is on Lovenox. DISPOSITION: Pending the results of his MRI and his ability to work with physical therapy, home versus subacute rehabilitation. My suspicion is for subacute rehabilitation. DOUG
[2017-03-29 18:00] VITALS: BP 98/58
[2017-03-29 20:00] VITALS: BP 105/47
[2017-03-29] MEDS: TERAZOSIN 5 MG CAP PO SCH (20:25)
[2017-03-29] MEDS: SERTRALINE 100 MG TAB PO SCH (20:25)
[2017-03-29] MEDS: ATORVASTATIN 10 MG TAB PO SCH (20:25)
[2017-03-29] MEDS: LEVEMIR (INSULIN DETEMIR) 1 UNITS/0.01ML SC SCH (21:25)
[2017-03-30 01:00] VITALS: BP 140/69
[2017-03-30] MEDS: CYCLOBENZAPRINE 10 MG TAB PO PRN (01:25)
[2017-03-30 06:00] VITALS: BP 156/90
[2017-03-30] MEDS: PERCOCET 5MG/325MG TAB PO PRN ×4 (06:41→22:16)
[2017-03-30 06:55] LABS: BASO % 0.6 % (0.0-1.0); EOS # 0.3 K/mm3 (0.0-0.50); EOS % 5.5 % (0.0-3.0); LARGE UNSTAINED CELL # 0.1 K/mm3 (0.0-0.4); LARGE UNSTAINED CELL % 1.4 % (0.0-4.0); LYMPH # 1.1 K/mm3 (1.5-4.5); LYMPH % 17.9 % (24.0-44.0); MEAN CORPUSCULAR HEMOGLOBIN 29.4 pg (27.0-33.0); MEAN CORPUSCULAR HGB CONC 32.7 g/dl (32.0-36.5); MEAN CORPUSCULAR VOLUME 89.9 fl (80.0-96.0); MONO # 0.5 K/mm3 (0.0-0.8); MONO % 8.1 % (0.0-5.0); NEUTROPHILS # 3.9 K/mm3 (1.8-7.7); NEUTROPHILS % 66.5 % (36.0-66.0); PLATELET COUNT, AUTOMATED 235 k/mm3 (150-450); RED CELL DISTRIBUTION WIDTH 13.3 % (11.5-14.5); WHITE BLOOD COUNT 5.8 K/mm3 (4.0-10.0)
[2017-03-30 07:30] LABS: ALBUMIN 2.9 GM/DL (3.2-5.2); ALBUMIN/GLOBULIN RATIO 0.69 (1.00-1.93); ALKALINE PHOSPHATASE 99 U/L (45-117); ALT/SGPT 27 U/L (12-78); ANION GAP 8 MEQ/L (8-16); AST/SGOT 17 U/L (15-37); BILIRUBIN,TOTAL 0.5 MG/DL (0.2-1.0); BLOOD UREA NITROGEN 17 MG/DL (7-18); CALCIUM LEVEL 9.6 MG/DL (8.8-10.2); CARBON DIOXIDE LEVEL 31 MEQ/L (21-32); CHLORIDE LEVEL 99 MEQ/L (98-107); CREATININE FOR GFR 0.68 MG/DL (0.70-1.30); GLOMERULAR FILTRATION RATE > 60.0 (>49); GLUCOSE, FASTING 199 MG/DL (80-110); MAGNESIUM LEVEL 1.8 MG/DL (1.8-2.4); POTASSIUM SERUM 4.3 MEQ/L (3.5-5.1); SODIUM LEVEL 138 MEQ/L (136-145); TOTAL PROTEIN 7.1 GM/DL (6.4-8.2)
[2017-03-30] MEDS: FINASTERIDE 5 MG TAB PO SCH (08:33)
[2017-03-30] MEDS: SENOKOT S TAB PO SCH ×2 (08:33→20:26)
[2017-03-30] MEDS: GABAPENTIN 300 MG CAP PO SCH ×2 (08:33→20:26)
[2017-03-30] MEDS: METOPROLOL TART 25 MG TABLET PO SCH ×2 (08:34→20:27)
[2017-03-30] MEDS: LOSARTAN 50 MG TAB PO SCH (08:34)
[2017-03-30] MEDS: OMEPRAZOLE 20 MG CAP PO SCH (08:34)
[2017-03-30] MEDS: FUROSEMIDE 40 MG TAB PO SCH (08:34)
[2017-03-30] MEDS: MORPHINE 15 MG SA TAB PO SCH ×2 (08:35→20:27)
[2017-03-30] MEDS: ENOXAPARIN 40 MG/0.4 ML SYRINGE (J1650) SC SCH (08:35)
[2017-03-30] MEDS: HumaLOG INSULIN (NovoLOG) PER UNIT SC SCH ×4 (08:36→20:46)
[2017-03-30 10:00] VITALS: BP 132/75
--- NOTE | 2017-03-30 11:00 | REPUSA ---
MRI of the lumbar spine without contrast Clinical statement: Pain. Technique: Multiecho multiplanar MRI images of the lumbar spine were obtained without administration of contrast. No comparison is available. Findings: The lumbar vertebral bodies are in satisfactory alignment, but there is abnormal straighten ing of the curvature of the lumbar spine noted. No fractures or dislocations are demonstrated. Normal heterogeneous bone marrow signal is noted. No osseous tumors are seen. There is severe degenerative disc disease at L2/L3, L3/L4, L4/L5, and L5/S1 . The surrounding soft tissues are within normal limit s. At L2/L3, there is a large disc osteophyte complex and disc bulge. This causes borderline central can al stenosis measuring 12 mm in AP diameter. There is hypertrophy of the ligamentum flavum. These find ings cause severe bilateral neural foraminal narrowing. At L3/L4, there is a large disc osteophyte complex and disc bulge. This causes borderline central can al stenosis measuring 12 mm in AP diameter. There is hypertrophy of the ligamentum flavum. These find ings cause severe bilateral neural foraminal narrowing. At L4/L5, there is a large disc osteophyte complex and disc bulge. There is no evidence of central ca nal stenosis. These findings cause moderate bilateral neural foraminal narrowing. At L5/S1, there is a large disc osteophyte complex and disc bulge. There is also a tiny central disc protrusion. There is no evidence of central canal stenosis. These findings cause severe bilateral sinan ral foraminal narrowing. Impression: 1. At L2/L3 and L3/L4, large disc osteophyte complexes and disc bulges caused borderline central abhijeet l stenosis and severe bilateral neural foraminal narrowing. 2. At L4/L5, disc osteophyte complex causes moderate bilateral neural foraminal narrowing. 3. At L5/S1, large disc osteophyte complex would tiny central disc protrusion is noted. There is ian re bilateral neural foraminal narrowing at this level. 4. Severe spondylosis and degenerative changes throughout the lumbar spine, with straightening of the lumbar spine noted.
[2017-03-30 14:00] VITALS: BP 122/60
--- NOTE | 2017-03-30 14:46 | IPN ---
DATE: 03/30/2017 SUBJECTIVE: Today, the patient tells me that he is doing quite well. He tells me that he was actually able to get up and walk to the door. He tells me that this has been a significant improvement for him. He also tells me that the back pain is still there but it is significantly better than it was previously. Denies chest pain, fevers, chills, nausea, vomiting or diarrhea and otherwise is doing well. OBJECTIVE: VITAL SIGNS: Temperature is 97.1, pulse 87, respiratory rate 18, blood pressure 132/75, oxygen saturation 95% on room air. GENERAL: He is a super morbidly obese man who sits up in bed to greet me. He does not appear to be in acute distress. HEENT: Cranial nerves II-XII are grossly intact. He is wearing glasses. He has moist mucous membranes Elevation of central venous pressure (CVP), he has a large neck. CARDIOVASCULAR EXAM: S1, S2, regular. RESPIRATORY EXAM: Clear. Pulses are distant secondary to body habitus. ABDOMINAL EXAM: Nontender and obese. EXTREMITIES: No clubbing or cyanosis. There is trace edema. LABORATORY STUDIES: WBC 5.8, hemoglobin 11.8, hematocrit 36.2, platelet count 235. Chemistry panel: Sodium 138, potassium 4.3, chloride 99, bicarbonate 31, BUN 17, creatinine 0.6. CRP was trending down yesterday. IMAGING: The patient did have a lumbar spine MRI, the report of which is not currently available. ASSESSMENT AND PLAN: This is a 67-year-old male with acute on chronic back pain. Problems: 1. Acute on chronic back pain. The patient has had an open MRI completed. I will call radiology and see if I can obtain some preliminary results regarding his study. At the present time, his pain is well controlled with oral medications, and he does appear to be improving. He was able to get up and ambulate to the door yesterday. As he continues to improve, I suspect he may require some subacute rehabilitation versus going home. Depending on the results of the MRI, he may benefit from outpatient referral to ortho spine given that he is improving. 2. Constipation. Continue with his bowel regimen of Milk of Magnesia, Senokot. 3. Diabetes. He is on sliding scale insulin and Levemir. 4. Hypertension. He is on losartan, metoprolol. His blood pressure is controlled 5. BPH. He is on terazosin and Proscar. 6. Neuropathy. He is on gabapentin. 7. Gastroesophageal reflux disease. He is on omeprazole. 8. Mood disorder. He is on sertraline. 9. Deep vein thrombosis (DVT) prophylaxis. He is on Lovenox. DISPOSITION: Likely subacute rehabilitation versus home when able. DOUG
[2017-03-30 20:00] VITALS: BP 140/70
[2017-03-30] MEDS: ATORVASTATIN 10 MG TAB PO SCH ×2 (20:26→20:31)
[2017-03-30] MEDS: SERTRALINE 100 MG TAB PO SCH (20:26)
[2017-03-30] MEDS: TERAZOSIN 5 MG CAP PO SCH (20:27)
[2017-03-30] MEDS: LEVEMIR (INSULIN DETEMIR) 1 UNITS/0.01ML SC SCH (20:46)
[2017-03-31 04:00] VITALS: BP 155/71
[2017-03-31] MEDS: PERCOCET 5MG/325MG TAB PO PRN ×5 (04:33→23:29)
[2017-03-31 06:41] LABS: BASO % 0.4 % (0.0-1.0); EOS # 0.3 K/mm3 (0.0-0.50); EOS % 6.4 % (0.0-3.0); LARGE UNSTAINED CELL # 0.1 K/mm3 (0.0-0.4); LARGE UNSTAINED CELL % 2.1 % (0.0-4.0); LYMPH % 20.5 % (24.0-44.0); MEAN CORPUSCULAR HEMOGLOBIN 29.5 pg (27.0-33.0); MEAN CORPUSCULAR HGB CONC 33.6 g/dl (32.0-36.5); MEAN CORPUSCULAR VOLUME 87.7 fl (80.0-96.0); MONO # 0.4 K/mm3 (0.0-0.8); MONO % 7.7 % (0.0-5.0); NEUTROPHILS # 3.2 K/mm3 (1.8-7.7); PLATELET COUNT, AUTOMATED 221 k/mm3 (150-450); RED CELL DISTRIBUTION WIDTH 13.1 % (11.5-14.5); WHITE BLOOD COUNT 5.1 K/mm3 (4.0-10.0)
[2017-03-31 07:02] LABS: ALBUMIN 2.8 GM/DL (3.2-5.2); ALKALINE PHOSPHATASE 100 U/L (45-117); ALT/SGPT 32 U/L (12-78); ANION GAP 8 MEQ/L (8-16); AST/SGOT 23 U/L (15-37); BILIRUBIN,TOTAL 0.5 MG/DL (0.2-1.0); BLOOD UREA NITROGEN 15 MG/DL (7-18); CALCIUM LEVEL 9.8 MG/DL (8.8-10.2); CARBON DIOXIDE LEVEL 31 MEQ/L (21-32); CHLORIDE LEVEL 98 MEQ/L (98-107); CREATININE FOR GFR 0.59 MG/DL (0.70-1.30); GLOMERULAR FILTRATION RATE > 60.0 (>49); GLUCOSE, FASTING 190 MG/DL (80-110); MAGNESIUM LEVEL 1.7 MG/DL (1.8-2.4); POTASSIUM SERUM 3.7 MEQ/L (3.5-5.1); SODIUM LEVEL 137 MEQ/L (136-145); TOTAL PROTEIN 6.8 GM/DL (6.4-8.2)
[2017-03-31 08:30] VITALS: BP 147/83
[2017-03-31] MEDS: MORPHINE 15 MG SA TAB PO SCH ×2 (08:32→20:19)
[2017-03-31] MEDS: LOSARTAN 50 MG TAB PO SCH (08:32)
[2017-03-31] MEDS: SENOKOT S TAB PO SCH ×2 (08:33→20:20)
[2017-03-31] MEDS: METOPROLOL TART 25 MG TABLET PO SCH ×2 (08:33→20:20)
[2017-03-31] MEDS: FUROSEMIDE 40 MG TAB PO SCH (08:33)
[2017-03-31] MEDS: FINASTERIDE 5 MG TAB PO SCH (08:33)
[2017-03-31] MEDS: OMEPRAZOLE 20 MG CAP PO SCH (08:33)
[2017-03-31] MEDS: GABAPENTIN 300 MG CAP PO SCH ×2 (08:33→20:20)
[2017-03-31] MEDS: MOM 30ML SUSPENSION UDC PO PRN (08:34)
[2017-03-31] MEDS: HumaLOG INSULIN (NovoLOG) PER UNIT SC SCH ×4 (08:34→20:19)
[2017-03-31] MEDS: ENOXAPARIN 40 MG/0.4 ML SYRINGE (J1650) SC SCH (08:34)
[2017-03-31] MEDS ORDERED: FLEET ENEMA PR PRN (11:00)
--- NOTE | 2017-03-31 12:51 | IPN ---
DATE: 03/31/2017 SUBJECTIVE: This morning the patient tells me that he got up and walked to the door twice with his walker. This was more than he has done in previous days. He notices improvement but is very slow improvement. He denies chest pain, shortness of breath, fevers, chills, nausea, vomiting or diarrhea. He tells me that he is constipated and has not been able to have a bowel movement of late. OBJECTIVE: VITAL SIGNS: Temperature 98.3, pulse 79, respiratory rate 18, blood pressure 147/83, oxygen saturation 93% on room air. GENERAL: He is a super morbidly obese man, lying in bed, does not appear to be in acute distress. He was able to roll his side for physical exam. HEENT: Cranial nerves II-XII are grossly intact. He has moist mucous membranes. He is wearing glasses. He has a large neck. CARDIOVASCULAR EXAM: S1, S2, regular. RESPIRATORY EXAM: Is clear. Pulses distant secondary to body habitus. ABDOMINAL EXAM: Is nontender. EXTREMITIES: No clubbing or cyanosis. There is evidence of chronic [id number] stasis in the extremities. LABORATORY STUDIES: WBC 5.1, hemoglobin 11.4, hematocrit 33.8, platelet count 221. Chemistry panel: Sodium 137, potassium 3.7, chloride 98, bicarbonate 31, BUN 15 , creatinine 0.5. IMAGING: The patient did have a lumbar spine MRI yesterday, which revealed L2- L3 and L3-L4 large disc osteophyte complexes and disc bulges caused borderline central canal stenosis and severe bilateral neural foraminal narrowing. There was also L4-L5 disc osteophyte complex causing moderate bilateral neural foraminal narrowing, L5-S1 large disc osteophyte complex with tiny central disc protrusion and severe bilateral neural foraminal narrowing at this level. Severe spondylolysis and degenerative changes where the lumbar spine was straightening of the lumbar spine noted. ASSESSMENT AND PLAN: This is a 67-year-old male with acute on chronic back pain. PROBLEMS: 1. Acute on chronic back pain secondary to foraminal narrowing, central canal stenosis, spondylolysis. I did have a lengthy discussion with the patient about continuous supportive measures versus physical therapy, pain control and time as compared to neurosurgical intervention. He tells me that he would only want neurosurgical intervention as a last resort and as he is having improvement he would rather do several weeks of rehabilitation and if no improvement or recurrence, at this point reassess the need for neurosurgery. I did provide the patient with Dr. Luis's name and number and did inform him that should he change his mind he could be contacted at any point in the future for an outpatient referral. For the meantime, the patient is very slow to progress continuing physical therapy. I suspect he will need placement in subacute rehabilitation while he continues to improve gradually. At his baseline, he walks with a walker. 2. Constipation. Continue with Milk of Magnesia and Senokot. I will add a Fleet enema today for him. 3. Diabetes. He is on sliding scale insulin with Levemir. 4. Hypertension. He is on losartan and metoprolol. His blood pressure is controlled. 5. BPH. He is on terazosin and Proscar. 6. Neuropathy. He is on gabapentin. 7. Gastroesophageal reflux disease. He is on omeprazole. 8. Mood disorder. He is on sertraline. 9. Deep vein thrombosis (DVT) prophylaxis. He is on Lovenox. DISPOSITION: Likely subacute rehabilitation. Patient and family services (PFS) consult has been placed. DOUG
[2017-03-31 14:18] VITALS: BP 145/71
[2017-03-31 18:00] VITALS: BP 156/77
[2017-03-31 20:04] VITALS: BP 142/64
[2017-03-31] MEDS: LEVEMIR (INSULIN DETEMIR) 1 UNITS/0.01ML SC SCH (20:19)
[2017-03-31] MEDS: SERTRALINE 100 MG TAB PO SCH (20:19)
[2017-03-31] MEDS: TERAZOSIN 5 MG CAP PO SCH (20:20)
[2017-03-31] MEDS: ATORVASTATIN 10 MG TAB PO SCH ×2 (20:20→20:23)
[2017-04-01 04:53] VITALS: BP 150/70
[2017-04-01] MEDS: PERCOCET 5MG/325MG TAB PO PRN ×6 (06:37→22:25)
[2017-04-01 07:34] LABS: MEAN CORPUSCULAR HEMOGLOBIN 28.7 pg (27.0-33.0); MEAN CORPUSCULAR HGB CONC 31.9 g/dl (32.0-36.5); MEAN CORPUSCULAR VOLUME 89.9 fl (80.0-96.0); RED CELL DISTRIBUTION WIDTH 13.2 % (11.5-14.5); WHITE BLOOD COUNT 5.5 K/mm3 (4.0-10.0)
[2017-04-01 08:00] VITALS: BP 149/70
[2017-04-01 08:11] LABS: ANION GAP 9 MEQ/L (8-16); BLOOD UREA NITROGEN 16 MG/DL (7-18); CALCIUM LEVEL 9.3 MG/DL (8.8-10.2); CARBON DIOXIDE LEVEL 32 MEQ/L (21-32); CHLORIDE LEVEL 97 MEQ/L (98-107); CREATININE FOR GFR 0.71 MG/DL (0.70-1.30); GLOMERULAR FILTRATION RATE > 60.0 (>49); GLUCOSE, FASTING 206 MG/DL (80-110); MAGNESIUM LEVEL 1.8 MG/DL (1.8-2.4); POTASSIUM SERUM 3.8 MEQ/L (3.5-5.1); SODIUM LEVEL 138 MEQ/L (136-145)
[2017-04-01] MEDS: GABAPENTIN 300 MG CAP PO SCH ×2 (08:21→20:15)
[2017-04-01] MEDS: METOPROLOL TART 25 MG TABLET PO SCH ×2 (08:21→20:16)
[2017-04-01] MEDS: HumaLOG INSULIN (NovoLOG) PER UNIT SC SCH ×4 (08:21→22:12)
[2017-04-01] MEDS: FINASTERIDE 5 MG TAB PO SCH (08:21)
[2017-04-01] MEDS: OMEPRAZOLE 20 MG CAP PO SCH (08:23)
[2017-04-01] MEDS: FUROSEMIDE 40 MG TAB PO SCH (08:23)
[2017-04-01] MEDS: MORPHINE 15 MG SA TAB PO SCH ×2 (08:23→20:15)
[2017-04-01] MEDS: LOSARTAN 50 MG TAB PO SCH (08:24)
[2017-04-01] MEDS: SENOKOT S TAB PO SCH ×2 (08:24→20:16)
[2017-04-01] MEDS: ENOXAPARIN 40 MG/0.4 ML SYRINGE (J1650) SC SCH (08:26)
--- NOTE | 2017-04-01 11:40 | IPN ---
DATE: 04/01/2017 SUBJECTIVE: The patient tells me that he does not feel significantly different than yesterday, but he is still much improved than when he presented to the hospital. He denies chest pain, fevers, chills, nausea, vomiting or diarrhea. OBJECTIVE: VITAL SIGNS: Temperature 97.8, pulse 83, respiratory rate 20, blood pressure 149/70, oxygen saturation 97% on room air. GENERAL: He is a super morbidly obese man, sitting in bed, does not appear to be in acute distress. HEENT: Cranial nerves II-XII are grossly intact. He has moist mucous membranes. CARDIOVASCULAR EXAM: S1, S2. RESPIRATORY EXAM: Clear. Pulse and respiratory sounds are distant secondary to body habitus. ABDOMINAL EXAM: Is nontender. EXTREMITIES: No clubbing or cyanosis. LABORATORY STUDIES: Today, WBC 5.5, hemoglobin 12, platelet count 241. Chemistry panel: Sodium 138, potassium 3.8, chloride 97, bicarbonate 32, BUN 16, creatinine 0.7, CRP is 5.8 down from 11 three days earlier. No new imaging since lumbar spine MRI. ASSESSMENT AND PLAN: This is a 67-year-old man with acute on chronic back pain. PROBLEMS: 1. Acute on chronic back pain secondary to spondylolysis, lumbar stenosis and foraminal narrowing. I had a lengthy discussion with the patient once again about supportive measures and rehab versus surgical intervention. At this time, he is electing for supportive measures and does not wish to see a spinal surgeon. I did recommend to him that should he fail to improve with support measure or have recurrence or worsening, should consider seeing Dr. Luis of orthopedic surgery for potential future surgery. I did speak with patient and family services (PFS) this morning that we should begin seeking out placement for the patient. 2. Constipation. He is continued on Milk of Magnesia, Senokot and Fleet enemas as needed. 3. Hypertension. He is on losartan and metoprolol. 4. Benign prostatic hypertrophy (BPH). He is on Proscar and terazosin. 5. Neuropathy. He is on gabapentin. 6. Gastroesophageal reflux disease (GERD). He is on omeprazole. 7. Mood disorder. He is on sertraline. 8. Deep vein thrombosis (DVT) prophylaxis. He is on Lovenox. DISPOSITION: Likely pending placement. Continue to work with physical therapy.
[2017-04-01 14:00] VITALS: BP 149/76
[2017-04-01 18:00] VITALS: BP 156/78
[2017-04-01] MEDS: SERTRALINE 100 MG TAB PO SCH (20:15)
[2017-04-01] MEDS: ATORVASTATIN 10 MG TAB PO SCH ×2 (20:16→20:38)
[2017-04-01] MEDS: LEVEMIR (INSULIN DETEMIR) 1 UNITS/0.01ML SC SCH (20:17)
[2017-04-01] MEDS: TERAZOSIN 5 MG CAP PO SCH (20:20)
[2017-04-01 22:00] VITALS: BP 155/81
[2017-04-02 02:00] VITALS: BP 147/79
[2017-04-02] MEDS: PERCOCET 5MG/325MG TAB PO PRN ×4 (05:35→22:30)
[2017-04-02 06:00] VITALS: BP 157/87
[2017-04-02 06:26] LABS: MEAN CORPUSCULAR HGB CONC 32.4 g/dl (32.0-36.5); MEAN CORPUSCULAR VOLUME 89.5 fl (80.0-96.0); RED CELL DISTRIBUTION WIDTH 13.2 % (11.5-14.5); WHITE BLOOD COUNT 5.8 K/mm3 (4.0-10.0)
[2017-04-02 06:33] LABS: ANION GAP 7 MEQ/L (8-16); BLOOD UREA NITROGEN 15 MG/DL (7-18); CALCIUM LEVEL 9.2 MG/DL (8.8-10.2); CARBON DIOXIDE LEVEL 33 MEQ/L (21-32); CHLORIDE LEVEL 98 MEQ/L (98-107); CREATININE FOR GFR 0.68 MG/DL (0.70-1.30); GLOMERULAR FILTRATION RATE > 60.0 (>49); GLUCOSE, FASTING 217 MG/DL (80-110); MAGNESIUM LEVEL 1.7 MG/DL (1.8-2.4); POTASSIUM SERUM 3.9 MEQ/L (3.5-5.1); SODIUM LEVEL 138 MEQ/L (136-145)
[2017-04-02] MEDS: HumaLOG INSULIN (NovoLOG) PER UNIT SC SCH ×4 (08:21→21:00)
[2017-04-02] MEDS: GABAPENTIN 300 MG CAP PO SCH ×2 (08:22→20:58)
[2017-04-02] MEDS: FINASTERIDE 5 MG TAB PO SCH (08:22)
[2017-04-02] MEDS: LOSARTAN 50 MG TAB PO SCH (08:22)
[2017-04-02] MEDS: SENOKOT S TAB PO SCH ×2 (08:22→20:59)
[2017-04-02] MEDS: METOPROLOL TART 25 MG TABLET PO SCH ×2 (08:22→20:59)
[2017-04-02] MEDS: OMEPRAZOLE 20 MG CAP PO SCH (08:22)
[2017-04-02] MEDS: FUROSEMIDE 40 MG TAB PO SCH (08:22)
[2017-04-02] MEDS: MORPHINE 15 MG SA TAB PO SCH ×2 (08:23→21:00)
[2017-04-02] MEDS: ENOXAPARIN 40 MG/0.4 ML SYRINGE (J1650) SC SCH (08:23)
[2017-04-02 10:00] VITALS: BP 154/83
[2017-04-02] MEDS: MOM 30ML SUSPENSION UDC PO PRN (11:00)
[2017-04-02 14:00] VITALS: BP 150/73
--- NOTE | 2017-04-02 15:27 | IPN ---
DATE: 04/02/2017 SUBJECTIVE: This morning the patient tells me that he was able to walk several feet yesterday. He tells me that he is doing as much activity as he possibly can. He denies any chest pain, fevers, chills, nausea, vomiting, or diarrhea. He tells me that his back pain is persistent. OBJECTIVE: VITAL SIGNS: Temperature 96, pulse 86, respiratory rate 18, blood pressure (BP) 154/83, oxygen saturation 96% on room air. GENERAL: He is morbidly obese man lying in bed at a 30-degree angle watching television, wearing glasses. He does not appear to be in any acute distress whatsoever. HEENT: Cranial nerves II-XII are grossly intact. He has moist mucous membranes. Unable to assess for any elevation in his central venous pressure secondary to his body habitus. CARDIOVASCULAR: S1, S2, regular. RESPIRATORY: Clear. Both heart and lung sounds are distant secondary to body habitus. ABDOMEN: Nontender to palpation. EXTREMITIES: No clubbing, cyanosis, or edema. LABORATORY STUDIES: WBC 5.8, hemoglobin 11.4, platelet count 221. Chemistry panel: Sodium 138, potassium 3.9, chloride 98, bicarbonate 33, BUN 15, creatinine 0.6. CRP 5.8. No new imaging. ASSESSMENT AND PLAN: This is a 67-year-old man with acute on chronic back pain. 1. Acute on chronic back pain secondary to spondylosis, lumbar stenosis, and foraminal narrowing. The patient prefers to elect for conservative measures and no surgical intervention at this time. He would prefer to try rehabilitation or go home in order to continue. His improvement is slow, but it is progressive, and he is optimistic about his care at this time. I have suggested that the patient consider seeing Dr. Luis of orthopedic surgery should he fail to improve with these measures or have recurrence of his acute back pain. 2. Constipation. He is continued on milk of magnesia, Senokot, and Fleet enemas. 3. Hypertension, controlled with losartan and metoprolol. 4. Benign prostatic hypertrophy. He is on Proscar and terazosin. 5. Neuropathy. He is on gabapentin. 6. Gastroesophageal reflux disease, controlled with omeprazole. 7. Mood disorder. He is on sertraline. 8. Deep vein thrombosis (DVT) prophylaxis. He is on Lovenox. DISPOSITION: Pending placement and his improvement with physical therapy.
[2017-04-02 18:00] VITALS: BP 152/80
[2017-04-02] MEDS: TERAZOSIN 5 MG CAP PO SCH (20:58)
[2017-04-02] MEDS: SERTRALINE 100 MG TAB PO SCH (20:58)
[2017-04-02] MEDS: ATORVASTATIN 10 MG TAB PO SCH (20:58)
[2017-04-02] MEDS: LEVEMIR (INSULIN DETEMIR) 1 UNITS/0.01ML SC SCH (21:02)
[2017-04-02 22:00] VITALS: BP 130/82
[2017-04-03 02:00] VITALS: BP 151/78
[2017-04-03 06:00] VITALS: BP 154/77
[2017-04-03 06:42] LABS: MEAN CORPUSCULAR HEMOGLOBIN 28.7 pg (27.0-33.0); MEAN CORPUSCULAR HGB CONC 32.3 g/dl (32.0-36.5); MEAN CORPUSCULAR VOLUME 88.7 fl (80.0-96.0); RED CELL DISTRIBUTION WIDTH 13.4 % (11.5-14.5); WHITE BLOOD COUNT 5.4 K/mm3 (4.0-10.0)
[2017-04-03] MEDS: PERCOCET 5MG/325MG TAB PO PRN ×2 (06:51→14:13)
[2017-04-03 07:01] LABS: ANION GAP 7 MEQ/L (8-16); BLOOD UREA NITROGEN 17 MG/DL (7-18); CALCIUM LEVEL 9.2 MG/DL (8.8-10.2); CARBON DIOXIDE LEVEL 34 MEQ/L (21-32); CHLORIDE LEVEL 98 MEQ/L (98-107); CREATININE FOR GFR 0.67 MG/DL (0.70-1.30); GLOMERULAR FILTRATION RATE > 60.0 (>49); GLUCOSE, FASTING 207 MG/DL (80-110); POTASSIUM SERUM 3.8 MEQ/L (3.5-5.1); SODIUM LEVEL 139 MEQ/L (136-145)
[2017-04-03] MEDS: OMEPRAZOLE 20 MG CAP PO SCH (08:10)
[2017-04-03] MEDS: HumaLOG INSULIN (NovoLOG) PER UNIT SC SCH ×2 (08:10→12:34)
[2017-04-03] MEDS: MORPHINE 15 MG SA TAB PO SCH (08:11)
[2017-04-03] MEDS: SENOKOT S TAB PO SCH (08:11)
[2017-04-03] MEDS: GABAPENTIN 300 MG CAP PO SCH (08:11)
[2017-04-03] MEDS: LOSARTAN 50 MG TAB PO SCH (08:11)
[2017-04-03] MEDS: FINASTERIDE 5 MG TAB PO SCH (08:11)
[2017-04-03 08:12] VITALS: BP 154/77
[2017-04-03] MEDS: FUROSEMIDE 40 MG TAB PO SCH (08:12)
[2017-04-03] MEDS: METOPROLOL TART 25 MG TABLET PO SCH (08:12)
[2017-04-03 10:00] VITALS: BP 157/88
[2017-04-03] MEDS: ENOXAPARIN 40 MG/0.4 ML SYRINGE (J1650) SC SCH (11:54)
[2017-04-03 14:00] VITALS: BP 118/68
[2017-04-03] MEDS ORDERED: MORP15TASA PO (14:43)
[2017-04-03] MEDS ORDERED: PERCOCET PO (14:43)
[2017-04-03] MEDS ORDERED: GABA-282 PO ×2 (14:43→14:47)
[2017-04-03] MEDS ORDERED: ATOR1TAB19 PO (14:43)
[2017-04-03] MEDS ORDERED: CYCL10TA PO ×2 (14:43→14:47)
[2017-04-03] MEDS ORDERED: OXYC1TAB23 PO (14:50)
[2017-04-03] MEDS ORDERED: MORP1TAB19 PO (14:50)
--- NOTE | 2017-04-03 17:04 | DSES ---
DATE OF ADMISSION: 03/27/2017 DATE OF DISCHARGE: 04/03/2017 There were no specialists involved in his care. No complications during his stay. No procedures performed during his stay. DISCHARGE DIAGNOSES: 1. Acute on chronic back pain secondary to spondylosis, lumbar stenosis and foraminal narrowing. 2. Constipation. 3. Hypertension. 4. Benign prostatic hypertrophy. 5. Neuropathy. 6. Gastroesophageal reflux disease (GERD). 7. Mood disorder. SUMMARY OF HIS PRESENTATION: This is a 67-year-old who presented with back pain after attending a wedding where his activity level was higher than normal. He had relatively significant pain without obvious neurologic compromise. He was sent for an MRI in the open scanner when that became available which showed borderline central canal stenosis and bilateral neural foraminal narrowing at L2-3, L3-4 among other things. He was not interested in a surgical approach and improved with therapy. On the day of discharge, he is able to navigate two stairs and ambulate to the level where he will be able to be functional at home. The case was discussed with the patient and significant other at bedside and they feel ready to go home. Temperature is 96.4, pulse 70, respiratory rate 21, blood pressure 157/88, 93% on room air. Awake, appropriately interactive, pleasantly conversant. Breathing is symmetrical and rested. Heart is in a regular rate and rhythm. Abdomen is soft, doughy, nontender. He is morbidly obese. LABORATORY DATA: White cell count 5.4, hemoglobin 11.5. BUN 17, creatinine 0.67. DISCHARGE INSTRUCTIONS: Include the following: Followup with the [facility] within one week. MEDICATIONS AT THE TIME OF DISCHARGE: Include: - atorvastatin 10 mg by mouth daily - Flexeril 10 mg by mouth every six hours as needed for spasm - Neurontin 300 mg by mouth twice a day - morphine sulfate 15 mg by mouth twice a day extended release - Percocet two tablets every four hours as needed for pain, #45 - vitamin C supplement - aspirin 81 mg by mouth daily - carboxymethylcellulose one drop in each eye twice a day - vitamin D supplement - vitamin B12 supplement - Colace 100 mg by mouth twice a day - finasteride 5 mg by mouth daily - Lasix 60 mg by mouth daily - continue home Lantus and insulin sliding scale - losartan 100 mg by mouth daily - metformin 1000 mg by mouth twice a day - metoprolol tartrate 25 mg by mouth twice a day - naproxen 500 mg by mouth twice a day - omeprazole 40 mg by mouth daily - Livalo 4 mg by mouth daily at bedtime - sertraline 100 mg by mouth daily at bedtime - terazosin 10 mg by mouth daily at bedtime - vitamin E supplement 1000 mg by mouth daily at bedtime
== END 2017-04-03 17:00 | disposition home or self-care (01) | DRG 552 ==
LOC: EDBD 13:27 → M ED 13:27 → M ED INP 20:52 → M MS4PR 22:40 → INTOOBSV 03-27 08:54 → OBSVTOIN 03-27 08:54 → M PCU 03-31 17:38 → M MSPAV 04-01 13:59
PROVIDERS: ADMIT Internal Medicine; ATTEND Internal Medicine
DX: M48.06 Spinal stenosis, lumbar region (principal); Z68.43 Body mass index [BMI] 50.0-59.9, adult; M47.16 Other spondylosis with myelopathy, lumbar region; E11.40 Type 2 diabetes mellitus with diabetic neuropathy, unspecified; I10 Essential (primary) hypertension; D64.9 Anemia, unspecified; N40.0 Benign prostatic hyperplasia without lower urinary tract symptoms; F32.9 Major depressive disorder, single episode, unspecified; E66.01 Morbid (severe) obesity due to excess calories; K59.00 Constipation, unspecified; F41.9 Anxiety disorder, unspecified; K21.9 Gastro-esophageal reflux disease without esophagitis; Z79.82 Long term (current) use of aspirin; Z79.4 Long term (current) use of insulin; Z79.899 Other long term (current) drug therapy; Z87.891 Personal history of nicotine dependence

== ENCOUNTER 2017-04-06 11:48 | Emergency (ER) | payer MEDICARE, OTHER ==
[~2017-04-06] VITALS: Ht 177.8 cm; Wt 163.6 kg
[~2017-04-06 11:48] MED LIST: ASCO500T PO; ASPI81TAEC PO; ATOR1TAB19 PO; B-12100T2 PO; COLA100C5 PO; CYCL10TA PO; D31000TA PO; FINA5TAB2 PO; FURO40TA2 PO; GABA-282 PO; HYDR-3713 PO; INSULANT SC; LIVA4TAB PO; LOSA100T36 PO; METF10004 PO; METO50TA7 PO; MORP15TASA PO; MORP1TAB19 PO; NAPR500T3 PO; NOVOINJ3 SQ; OMEP20CA3 PO; OXYC1TAB23 PO; PERCOCET PO; SERT-138 PO; TERA10CA3 PO; VITA10005 PO; [UNRECOGNIZED DRUG - CODE] OU
[2017-04-06] MEDS ORDERED: NS 500 ML IV ONE (12:45)
[2017-04-06 13:26] LABS: BASO % 0.3 % (0.0-1.0); EOS # 0.2 K/mm3 (0.0-0.50); EOS % 1.8 % (0.0-3.0); LARGE UNSTAINED CELL # 0.1 K/mm3 (0.0-0.4); LARGE UNSTAINED CELL % 0.9 % (0.0-4.0); LYMPH # 0.8 K/mm3 (1.5-4.5); LYMPH % 6.5 % (24.0-44.0); MEAN CORPUSCULAR HEMOGLOBIN 29.8 pg (27.0-33.0); MEAN CORPUSCULAR HGB CONC 34.2 g/dl (32.0-36.5); MEAN CORPUSCULAR VOLUME 86.9 fl (80.0-96.0); MONO # 0.5 K/mm3 (0.0-0.8); MONO % 4.5 % (0.0-5.0); NEUTROPHILS # 10.1 K/mm3 (1.8-7.7); NEUTROPHILS % 86.1 % (36.0-66.0); PLATELET COUNT, AUTOMATED 234 k/mm3 (150-450); RED CELL DISTRIBUTION WIDTH 13.2 % (11.5-14.5); WHITE BLOOD COUNT 11.8 K/mm3 (4.0-10.0)
[2017-04-06 13:29] LABS: ALBUMIN 3.2 GM/DL (3.2-5.2); ALBUMIN/GLOBULIN RATIO 0.74 (1.00-1.93); CALCIUM LEVEL 8.7 MG/DL (8.8-10.2); CREATININE FOR GFR 1.28 MG/DL (0.70-1.30); GLOMERULAR FILTRATION RATE 59.5 (>49); POTASSIUM SERUM 3.8 MEQ/L (3.5-5.1); TOTAL PROTEIN 7.5 GM/DL (6.4-8.2)
--- NOTE | 2017-04-06 13:36 | REP ---
Clinical: Abdominal pain with urinary retention and constipation. Findings: There is subtle inflammatory stranding within the mid pelvis and most pronounced adjacent to the midsigmoid colon (images 90 - 105) which may reflect a mild diverticulitis. The enteric system is otherwise without obstruction or further acute inflammatory process. Liver, spleen, gallbladder, bilateral adrenal glands and kidneys are relatively normal for noncontrast evaluation. Pelvis demonstrates normal appearing bladder and prostate gland. No ascites. No significant adenopathy. No mass lesion. No free air. Lung bases suggest trace left basilar fibroatelectatic change. Skeletal structures demonstrate advanced degenerative changes most pronounced at the L3-[address] similar to CT of the lumbosacral spine performed 03/24/2017. Impression: Subtle inflammatory stranding within the mid pelvis most pronounced along the left side and adjacent to the sigmoid colon. Findings may reflect a very mild diverticulitis and correlation is warranted. Signed by Damon Asher MD 04/06/2017 01:28 P
[2017-04-06] MEDS ORDERED: FLAG500T PO (13:59)
[2017-04-06] MEDS ORDERED: CIPR-249 PO (13:59)
[2017-04-06] MEDS ORDERED: metroNIDAZOLE (FLAGYL) 500 MG TAB PO ONE (14:00)
[2017-04-06] MEDS ORDERED: CIPROFLOXACIN 500 MG TAB PO ONE (14:00)
[2017-04-06 16:16] VITALS: BP 119/84
== END 2017-04-06 16:18 | disposition home or self-care (01) ==
LOC: M ED 11:48
DX: N40.0 Benign prostatic hyperplasia without lower urinary tract symptoms (principal); R33.9 Retention of urine, unspecified; K57.32 Diverticulitis of large intestine without perforation or abscess without bleeding; I10 Essential (primary) hypertension; E78.00 Pure hypercholesterolemia, unspecified; G47.30 Sleep apnea, unspecified; E11.9 Type 2 diabetes mellitus without complications; M54.9 Dorsalgia, unspecified; G89.29 Other chronic pain; F32.9 Major depressive disorder, single episode, unspecified; Z96.642 Presence of left artificial hip joint; Z79.899 Other long term (current) drug therapy; Z79.891 Long term (current) use of opiate analgesic; Z79.4 Long term (current) use of insulin; Z79.1 Long term (current) use of non-steroidal anti-inflammatories (NSAID); Z79.82 Long term (current) use of aspirin

== ENCOUNTER 2017-04-08 21:48 | Emergency (ER) | payer MEDICARE, OTHER ==
[~2017-04-08] VITALS: Ht 177.8 cm; Wt 163.6 kg
[~2017-04-08 21:48] MED LIST changes: +CIPR-249 PO; +FLAG500T PO
[2017-04-09] MEDS ORDERED: diphenhydrAMINE INJ 50MG/ML VIAL (J1200) IV STA (01:23)
[2017-04-09] MEDS ORDERED: metroNIDAZOLE 750 MG in APPROPRIATE DILUENT 1 EA IV ONE (01:30)
[2017-04-09] MEDS ORDERED: CIPROFLOXACIN 400 MG in APPROPRIATE DILUENT 1 EA IV ONE (01:30)
[2017-04-09] MEDS ORDERED: NS 500 ML IV ONE (01:30)
[2017-04-09] MEDS ORDERED: METOCLOPRAMIDE INJ 10MG/2ML VIAL (J2765) IV ONE (01:30)
[2017-04-09 01:54] LABS: BASO % 0.5 % (0.0-1.0); EOS # 0.2 K/mm3 (0.0-0.50); EOS % 2.2 % (0.0-3.0); LARGE UNSTAINED CELL # 0.1 K/mm3 (0.0-0.4); LARGE UNSTAINED CELL % 1.1 % (0.0-4.0); LYMPH % 12.5 % (24.0-44.0); MEAN CORPUSCULAR HGB CONC 33.5 g/dl (32.0-36.5); MEAN CORPUSCULAR VOLUME 86.7 fl (80.0-96.0); MONO # 0.4 K/mm3 (0.0-0.8); MONO % 4.9 % (0.0-5.0); NEUTROPHILS % 78.7 % (36.0-66.0); PLATELET COUNT, AUTOMATED 271 k/mm3 (150-450); RED CELL DISTRIBUTION WIDTH 13.2 % (11.5-14.5); WHITE BLOOD COUNT 7.6 K/mm3 (4.0-10.0)
[2017-04-09 02:08] LABS: ANION GAP 10 MEQ/L (8-16); BLOOD UREA NITROGEN 20 MG/DL (7-18); CALCIUM LEVEL 9.4 MG/DL (8.8-10.2); CARBON DIOXIDE LEVEL 27 MEQ/L (21-32); CHLORIDE LEVEL 100 MEQ/L (98-107); CREATININE FOR GFR 0.86 MG/DL (0.70-1.30); GLOMERULAR FILTRATION RATE > 60.0 (>49); GLUCOSE, FASTING 141 MG/DL (80-110); POTASSIUM SERUM 3.6 MEQ/L (3.5-5.1); SODIUM LEVEL 137 MEQ/L (136-145)
[2017-04-09] MEDS ORDERED: REGL10TA6 PO (03:29)
[2017-04-09] MEDS ORDERED: ONDANSETRON 4MG/2ML VIAL (J2405) IV ONE (03:45)
[2017-04-09 04:02] VITALS: BP 152/67
[2017-06-04] MEDS ORDERED: VITA500T3 PO (10:31)
[2017-06-04] MEDS ORDERED: GABA-282 PO (10:31)
== END 2017-04-09 04:13 | disposition home or self-care (01) ==
LOC: M ED 21:48
DX: R11.0 Nausea (principal); Z91.14 Patient's other noncompliance with medication regimen; I10 Essential (primary) hypertension; E11.9 Type 2 diabetes mellitus without complications; M54.9 Dorsalgia, unspecified; G89.29 Other chronic pain; N40.1 Benign prostatic hyperplasia with lower urinary tract symptoms; F32.9 Major depressive disorder, single episode, unspecified; Z79.899 Other long term (current) drug therapy; Z79.2 Long term (current) use of antibiotics; Z79.4 Long term (current) use of insulin; Z79.1 Long term (current) use of non-steroidal anti-inflammatories (NSAID); Z79.82 Long term (current) use of aspirin; Z96.0 Presence of urogenital implants
CPT/HCPCS: 36415; 80048; 85025; 96365; 96366; 96367; 96375; 99284; J0744; J1200; J2405; J2765

== ENCOUNTER 2017-04-11 08:32 | Observation (INO) | payer MEDICARE, OTHER ==
[~2017-04-11] VITALS: Ht 177.8 cm; Wt 161.5 kg
[~2017-04-11 08:32] MED LIST changes: +REGL10TA6 PO
[2017-04-11 09:23] LABS: BASO % 0.7 % (0.0-1.0); EOS # 0.2 K/mm3 (0.0-0.50); EOS % 3.7 % (0.0-3.0); LARGE UNSTAINED CELL # 0.1 K/mm3 (0.0-0.4); LARGE UNSTAINED CELL % 1.5 % (0.0-4.0); LYMPH # 0.8 K/mm3 (1.5-4.5); LYMPH % 13.8 % (24.0-44.0); MEAN CORPUSCULAR HEMOGLOBIN 29.8 pg (27.0-33.0); MEAN CORPUSCULAR HGB CONC 34.5 g/dl (32.0-36.5); MEAN CORPUSCULAR VOLUME 86.3 fl (80.0-96.0); MONO # 0.3 K/mm3 (0.0-0.8); MONO % 5.2 % (0.0-5.0); NEUTROPHILS # 4.5 K/mm3 (1.8-7.7); NEUTROPHILS % 75.1 % (36.0-66.0); PLATELET COUNT, AUTOMATED 247 k/mm3 (150-450); RED CELL DISTRIBUTION WIDTH 13.1 % (11.5-14.5)
[2017-04-11 09:30] VITALS: O2SAT 85
[2017-04-11 09:48] LABS: ALBUMIN 3.2 GM/DL (3.2-5.2); ALKALINE PHOSPHATASE 87 U/L (45-117); ALT/SGPT 36 U/L (12-78); ANION GAP 6 MEQ/L (8-16); AST/SGOT 27 U/L (15-37); BILIRUBIN,DIRECT 0.3 MG/DL (0.0-0.2); BILIRUBIN,TOTAL 0.6 MG/DL (0.2-1.0); BLOOD UREA NITROGEN 15 MG/DL (7-18); CALCIUM LEVEL 8.8 MG/DL (8.8-10.2); CARBON DIOXIDE LEVEL 32 MEQ/L (21-32); CHLORIDE LEVEL 103 MEQ/L (98-107); CREATININE FOR GFR 0.71 MG/DL (0.70-1.30); GLOMERULAR FILTRATION RATE > 60.0 (>49); GLUCOSE, FASTING 101 MG/DL (80-110); POTASSIUM SERUM 3.4 MEQ/L (3.5-5.1); SODIUM LEVEL 141 MEQ/L (136-145); TOTAL PROTEIN 6.4 GM/DL (6.4-8.2)
[2017-04-11] MEDS ORDERED: ONDANSETRON 4MG/2ML VIAL (J2405) IV ONE ×2 (10:00→15:15)
[2017-04-11] MEDS ORDERED: NS 500 ML IV ONE (10:00)
[2017-04-11] MEDS ORDERED: POTASSIUM CHLORIDE 10 MEQ SR TABLET PO ONE ×2 (15:00→15:45)
[2017-04-11] MEDS ORDERED: LevoFLOXacin IV 750 MG in APPROPRIATE DILUENT 1 EA IV ONE (15:15)
[2017-04-11] MEDS ORDERED: OMEPRAZOLE 20 MG CAP PO PRN (15:45)
[2017-04-11] MEDS ORDERED: ONDANSETRON 4MG/2ML VIAL (J2405) IV PRN (15:45)
[2017-04-11] MEDS ORDERED: METOCLOPRAMIDE INJ 10MG/2ML VIAL (J2765) IV PRN (15:45)
[2017-04-11] MEDS ORDERED: PERCOCET 5MG/325MG TAB PO PRN (15:45)
[2017-04-11] MEDS ORDERED: ISOVUE-370 76% 100ML VIAL (Q9967) As Ordered ONE (15:47)
--- NOTE | 2017-04-11 17:14 | REP ---
CT of the abdomen pelvis with IV contrast but without bowel contrast Comparison is 04/06/2017. The visualized lung bean are unremarkable. The hepatic parenchyma, gallbladder, pancreas, spleen are unremarkable. The adrenals, kidneys and abdominal aorta are unremarkable. There is no bowel distension. No wall thickening. The mesentery is unremarkable. Pelvis: There is a catheter in the bladder and the bladder is collapsed. There is a left hip arthroplasty with beam-hardening artifact obscuring visualization. The previous evidence for diverticulitis of the sigmoid colon has resolved. There are a few diverticula, compatible with diverticulosis. There is no adenopathy or ascites. No pneumoperitoneum. Impression: The previous sigmoid diverticulitis has resolved. There is no ascites or adenopathy. There is no bowel distension or obstruction. No pneumoperitoneum. No hydronephrosis. Otherwise, negative CT of the abdomen and pelvis. Signed by Lv Godfrey MD 04/11/2017 05:06 P
[2017-04-11 17:20] VITALS: BP 159/75
[2017-04-11] MEDS: ASCORBIC ACID 500 MG TAB PO SCH (17:54)
[2017-04-11] MEDS: VITAMIN D 1,000 INTERNATIONAL UNITS TABLET PO SCH (17:54)
[2017-04-11] MEDS: ASPIRIN 81 MG ENTERIC TAB PO SCH (17:55)
[2017-04-11] MEDS: FINASTERIDE 5 MG TAB PO SCH (17:58)
[2017-04-11] MEDS: NS 1,000 ML IV SCH ×2 (17:58→22:45)
[2017-04-11] MEDS: HEPARIN SOD (PORCINE) 5000 UNITS/ML VIAL SC SCH (20:32)
[2017-04-11] MEDS: TERAZOSIN 5 MG CAP PO SCH (20:33)
[2017-04-11] MEDS: DOCUSATE SODIUM 100 MG CAP PO SCH (20:33)
[2017-04-11] MEDS: GABAPENTIN 300 MG CAP PO SCH (20:33)
[2017-04-11] MEDS: SERTRALINE 100 MG TAB PO SCH (20:33)
[2017-04-11] MEDS: MORPHINE 15 MG SA TAB PO SCH (20:33)
[2017-04-11] MEDS: METOPROLOL TART 50 MG TAB PO SCH (20:34)
[2017-04-11] MEDS ORDERED: LEVEMIR (INSULIN DETEMIR) 1 UNITS/0.01ML SC SCH (21:00)
--- NOTE | 2017-04-11 21:03 | HPE ---
DATE OF ADMISSION: 04/11/2017 CHIEF COMPLAINT: Nausea for 6 days. HISTORY OF PRESENT ILLNESS: This is a 67-year-old male with a pertinent past medical history of benign prostatic hypertrophy (BPH), insulin-dependent diabetes mellitus 2, hypertension, neuropathy, chronic low back, depression and anxiety, and gastroesophageal reflux disease (GERD) who currently has an indwelling catheter that was placed on 04/06/2017, who is presenting in today for nausea for 6 days. Patient states that nausea started on April 06 evening, when he came to [facility] (ER) because he had an impacted bowel. Patient states when he came here on April 06, after they disimpacted him they asked him to do a urine sample, and he could not. They found that he had urinary retention, so they placed a [place] catheter. His urinalysis (UA) results from April 06 showed that he was growing Enterococcus faecalis, and he was placed on ciprofloxacin. Patient states that evening when he went home and took the ciprofloxacin he started getting uncontrollable nausea. He did not continue with the ciprofloxacin the following days, and the nausea still progressed. Patient stated that his worst nausea was on Saturday, April 09. Patient states that he has a decrease of appetite, he has eaten very little. The last time he remembered eating was 48 hours ago, when he ate half a toast and egg. Patient states that since Saturday he has also experienced green stool. Patient denies them being diarrhea but does remember the color being greenish. He describes the stool as green, jelly-like consistency. Patient states that he feels like this all started 3 weeks ago when he started having low back pain, and he was evaluated here at [facility] ([facility] ER as well, and he was admitted for low back pain. He states that since then he has not been feeling the best. REVIEW OF SYSTEMS: Denies any abdominal pain. Admits to green bowels. Admits to low back pain, but it has been chronic. Denies any fevers, chills, or any night sweats, any chest pain, any shortness of breath, any trouble breathing, any vomiting episodes. Denies any new bruising, lymphadenopathy, or change in color of his skin tone. PAST MEDICAL HISTORY: 1. Insulin-dependent diabetes, type 2. 2. Hypertension. 3. BPH. 4. Neuropathy. 5. Chronic low back pain. 6. Depression and anxiety. 7. GERD. SURGICAL HISTORY: He had a hip replacement in 2002. FAMILY HISTORY: Noncontributory. SOCIAL HISTORY: Denies use of illicit drugs. Social alcohol use. Quit smoking 40 years ago. Was a former smoker of one pack a day for 20 years, though. Denies any recent travel or sick contact. Lives with his . 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 HOME MEDICATIONS: - ascorbic acid 500 mg daily by mouth - aspirin 81 mg by mouth daily - carboxymethylcellulose sodium one drop eyes twice a day - vitamin D3 at 1000 units by mouth daily - B12 at 100 mcg by mouth daily - cyclobenzaprine CL 10 mg by mouth every 6 hours as needed for spasms - Colace 100 mg by mouth twice a day - finasteride 5 mg by mouth daily - furosemide 60 mg by mouth daily - gabapentin 300 mg by mouth twice a day - NovoLog FlexPen subcutaneous before meals per sliding scale - Lantus 62 units subcutaneous at bedtime - losartan potassium 100 mg by mouth daily - metformin 1000 mg by mouth twice a day - Reglan 10 mg by mouth every 6 as needed for nausea - metoprolol tartrate 25 mg by mouth twice a day - morphine sulfate 15 mg by mouth twice a day - naproxen 500 mg tablets by mouth twice a day - omeprazole 40 mg by mouth daily as needed for heartburn - oxycodone acetaminophen two tablets by mouth every 4 hours as needed for moderate to severe pain from 5/10 - pitavastatin calcium 4 mg by mouth at bedtime - sertraline 100 mg by mouth at bedtime - terazosin 10 mg by mouth at bedtime - vitamin E 1000 units by mouth at bedtime ALLERGIES: No known drug allergies. OBJECTIVE: Vital signs: Temperature 98.1, pulse 64, respiratory rate of 20, blood pressure of 161/82 (108), pulse oximetry 99% on room air. PHYSICAL EXAMINATION: GENERAL: A fairly morbidly obese male in no acute distress, lying comfortable in his bed, speaking in full sentences, awake, alert, oriented times three. HEENT: He is normocephalic, atraumatic. Moist mucous membranes. Extraocular movement intact. CARDIOVASCULAR: Regular rate and rhythm. S1, S2 sounds are present. There are no rubs, murmurs, or gallops appreciated. LUNGS: Clear to auscultation bilaterally. No wheezing, rhonchi, or crackles are appreciated. ABDOMEN: Soft, nondistended, nontender. Positive bowel sounds in all four quadrants. Very large habitus. GASTROINTESTINAL: Rectal exam was performed. Regular rectal tone and stool occult guaiac was negative. EXTREMITIES: Peripheral pulses present, all four extremities. No lower extremity edema was appreciated. No calf tenderness. SKIN: No visible rashes or lesions. LABORATORY DATA: Hematology: WBC 6.0, hemoglobin of 12.5, hematocrit of 36.3, platelets of 247, neutrophils of 75.1, lymphocytes of 13.8, monocytes of 5.2, eosinophils of 3.7. Chemistry: Sodium of 141, potassium of 3.4, chloride of 103, carbon dioxide of 32, anion gap of 6, creatinine of 0.71, fasting glucose of 101, anion gap of 6. Total bilirubin of 0.6, direct bilirubin of 0.3, AST of 27, ALT of 36, alkaline phosphatase of 87. Total creatine kinase of 62, CK-MB of 1.7. Troponin 0.02. Total protein of 6.4, albumin of 3.2, lipase of 255. Urinalysis: Urine color was sintia. Appearance was very cloudy. Urine protein is 2+. Urine ketones are 1+. Urine blood is 3+. Urine leukocyte esterase is 2+. Urine WBC is 145. Urine bacterial of 1+. Amorphous sediment small. No recent imaging has been done yet in the ER. ASSESSMENT AND PLAN: This is a pleasant 67-year-old male with a pertinent past medical history of benign prostatic hypertrophy (BPH), insulin-dependent diabetes, hypertension, who had an indwelling catheter placed on April 06 who was presenting to the ER this morning for nausea for 6 days. We have admitted him for untreated urinary tract infection (UTI). Because of the patient's positive urine cultures from April 06 of Enterococcus faecalis, we discharged the patient on ciprofloxacin, but he was noncompliant with it. We treated the patient in the ER with levofloxacin 750 mg intravenous (IV). The patient has been admitted for observation, and we will observe the patient for the next 24 hours. Urine culture were obtained, and we will follow them. For the low back pain, because this is a chronic issue, we have morphine sulfate that the patient as taking his home medication and will continue to monitor him tomorrow. Normocytic anemia. The patient is at baseline with his hemoglobin of 12.5 and hematocrit of 36.3. We will continue to monitor the patient. Insulin-dependent diabetes mellitus 2. We will continue with an insulin sliding scale and patient's home medication. Hypertension. Continue with the patient's home medication of furosemide, losartan, metoprolol. For the patient's dyslipidemia will continue the patient on atorvastatin, because he is taking pitavastatin outpatient. For the benign prostatic hypertrophy (BPH), will continue the patient with finasteride and terazosin. For the neuropathy will continue the patient's gabapentin. For the depression, will continue the patient on his sertraline. For the gastroesophageal reflux disease (GERD) will continue the patient on omeprazole. For the deep vein thrombosis (DVT) prophylaxis will continue the patient on Lovenox. My preceptor for this patient encounter was Dr. Brandy Lang. The preceptor was physically present in the building during the encounter and was fully available as needed. All aspects of the patient interview, examination, medical decision making process, and medical care plan development were reviewed and approved by the preceptor. The preceptor is aware and concurs with the plan as stated in the body of this note and will attest to such by his/her co-signature. DOUG
[2017-04-11 22:00] VITALS: BP 159/77
[2017-04-12] MEDS ORDERED: DEXTROSE 50% 50 ML SYRINGE As Ordered ONE (00:31)
[2017-04-12] MEDS ORDERED: DEXTROSE 50% 50 ML SYRINGE IV STA (01:00)
[2017-04-12] MEDS ORDERED: D5W/0.45% SODIUM CHLORIDE 1,000 ML IV SCH (05:15)
[2017-04-12] MEDS: HEPARIN SOD (PORCINE) 5000 UNITS/ML VIAL SC SCH ×3 (05:38→21:17)
[2017-04-12] MEDS: VANCOMYCIN ORAL SOL 250MG/5ML ORAL SYRINGE PO SCH ×4 (05:38→19:02)
[2017-04-12] MEDS: LevoFLOXacin 500 MG TABLET PO SCH (05:38)
[2017-04-12 06:00] VITALS: BP 160/75
[2017-04-12 06:12] LABS: BASO % 0.4 % (0.0-1.0); EOS # 0.2 K/mm3 (0.0-0.50); LARGE UNSTAINED CELL # 0.1 K/mm3 (0.0-0.4); LARGE UNSTAINED CELL % 1.3 % (0.0-4.0); LYMPH # 1.2 K/mm3 (1.5-4.5); LYMPH % 14.8 % (24.0-44.0); MEAN CORPUSCULAR HEMOGLOBIN 29.2 pg (27.0-33.0); MEAN CORPUSCULAR HGB CONC 33.5 g/dl (32.0-36.5); MEAN CORPUSCULAR VOLUME 87.1 fl (80.0-96.0); MONO # 0.5 K/mm3 (0.0-0.8); MONO % 6.1 % (0.0-5.0); NEUTROPHILS # 5.9 K/mm3 (1.8-7.7); NEUTROPHILS % 75.4 % (36.0-66.0); PLATELET COUNT, AUTOMATED 245 k/mm3 (150-450); RED CELL DISTRIBUTION WIDTH 13.2 % (11.5-14.5); WHITE BLOOD COUNT 7.8 K/mm3 (4.0-10.0)
[2017-04-12 07:20] LABS: ANION GAP 5 MEQ/L (8-16); BLOOD UREA NITROGEN 15 MG/DL (7-18); CALCIUM LEVEL 8.5 MG/DL (8.8-10.2); CARBON DIOXIDE LEVEL 29 MEQ/L (21-32); CHLORIDE LEVEL 105 MEQ/L (98-107); CREATININE FOR GFR 0.73 MG/DL (0.70-1.30); GLOMERULAR FILTRATION RATE > 60.0 (>49); GLUCOSE, FASTING 77 MG/DL (80-110); MAGNESIUM LEVEL 1.6 MG/DL (1.8-2.4); POTASSIUM SERUM 3.8 MEQ/L (3.5-5.1); SODIUM LEVEL 139 MEQ/L (136-145)
[2017-04-12] MEDS: MORPHINE 15 MG SA TAB PO SCH ×2 (08:59→21:00)
[2017-04-12] MEDS ORDERED: MAG SULF 1GM/100ML (MAG RUN) 1 GM in APPROPRIATE DILUENT 1 EA IV ONE (09:00)
[2017-04-12] MEDS: GABAPENTIN 300 MG CAP PO SCH ×2 (09:02→21:14)
[2017-04-12] MEDS: FINASTERIDE 5 MG TAB PO SCH (09:02)
[2017-04-12] MEDS: METOPROLOL TART 50 MG TAB PO SCH ×2 (09:02→21:16)
[2017-04-12] MEDS: VITAMIN D 1,000 INTERNATIONAL UNITS TABLET PO SCH (09:02)
[2017-04-12] MEDS: ASPIRIN 81 MG ENTERIC TAB PO SCH (09:02)
[2017-04-12] MEDS: ASCORBIC ACID 500 MG TAB PO SCH (09:04)
[2017-04-12] MEDS: DOCUSATE SODIUM 100 MG CAP PO SCH ×2 (09:06→21:16)
--- NOTE | 2017-04-12 11:37 | ECGEPIP ---
Stationary ECG Study [facility] - ED Test Date: 2017-04-11 Pat Name: SALO MARINO Department: Room: - Gender: M Senior Group Manager: torrie : 1950 Requested By: CAMDEN Vines Order Number: [id number] Reading MD: Jennifer Welsh Measurements Intervals [place] Rate: 62 P: 27 RI: 202 QRS: -11 QRSD: 102 T: 3 QT: 417 QTc: 427 Interpretive Statements SINUS RHYTHM PRWP NSTTW ABNORMALITY NO PRIOR FOR COMPARISON Electronically Signed On 04-12-2017 11:37:21 EDT by Jennifer Welsh
--- NOTE | 2017-04-12 13:46 | IPNPDOC ---
Text Note Date of Service The patient was seen on 04/12/17. NOTE Subjective: Patient states he been having greenish diarrhea over the past few days. Hadn't tried taking the ciprofloxacin for his UTI for 2 days however became nauseous shortly afterward. Currently his nausea and vomiting have subsided. He is ready to start eating breakfast. Objective: Vitals: (see below) General: No acute distress, laying comfortably in bed. HEENT: Moist mucous membranes. Neck: No JVD or lymphadenopathy Cardiac: RRR, No murmurs Pulm: Diminished breath sounds at the bases b/l. No wheezing, rhonchi Abd: NT/ND + BS. Obese Ext: Trace edema bilateral lower extremities. No cyanosis. Labs (see below) Images: CT abdomen pelvis on 04/11/17 Impression: The previous sigmoid diverticulitis has resolved. There is no ascites or adenopathy. There is no bowel distension or obstruction. No pneumoperitoneum. No hydronephrosis. Otherwise, negative CT of the abdomen and pelvis. Assessment/Plan 1. Nausea and vomiting with a positive C. difficile- recently on Flagyl. Patient had completed 2 days of his ciprofloxacin for his UTI when he started to develop greenish diarrhea that was foul-smelling. GI panel with a positive C. difficile. Started on vancomycin by mouth. Renal function stable. No leukocytosis. 2. Enterococcus faecalis Escherichia coli - started on levofloxacin. Will have a short course of antibiotics given the C. difficile. 3. Insulin-dependent diabetes, type 2.- Had periods of hypoglycemia on admission. Levemir dose has been decreased, until patient's appetite increases.. On D5 W. 4. Hypertension- uncontrolled. Restart losartan and diuretic. 5. Chronic low back pain. Continue pain management 6. Depression and anxiety. Continue home meds 7. GERD. Continue home meds 8. BPH. Continue meds 9. Neuropathy. Continue home meds DVT prophy: Heparin subcutaneous Plan to discharge patient in 24- 48 hours based on clinical progress. VS,Fishbone, I+O VS, Fishbone, I+O Laboratory Tests 04/12/17 05:25 Red Blood Count 4.21 L, Mean Corpuscular Volume 87.1, Mean Corpuscular Hemoglobin 29.2, Mean Corpuscular Hemoglobin Concent 33.5, Red Cell Distribution Width 13.2, Neutrophils (%) (Auto) 75.4 H, Lymphocytes (%) (Auto) 14.8 L, Monocytes (%) (Auto) 6.1 H, Eosinophils (%) (Auto) 2.0, Basophils (%) ( Auto) 0.4, Neutrophils # (Auto) 5.9, Lymphocytes # (Auto) 1.2 L, Monocytes # ( Auto) 0.5, Eosinophils # (Auto) 0.2, Basophils # (Auto) 0.0 04/12/17 06:39 Calcium Level 8.5 L Vital Signs Date Time Temp Pulse Resp B/P (MAP) Pulse Ox O2 Delivery O2 Flow Rate FiO2 04/12/17 09:02 68 165/75 04/12/17 08:59 16 04/12/17 06:00 97.2 99 Room Air 04/11/17 09:30 2.0 I&O- Last 24 Hours up to 6 AM 04/13/17 06:00 Intake Total 915 ml Output Total 125 ml Balance 790 ml HERMAN MAYNARD MD Apr 12, 2017 13:46
[2017-04-12 14:00] VITALS: BP_SYST 112; BP_SYST 119; BP_DIAS 59; BP_DIAS 61
[2017-04-12] MEDS: LOSARTAN 50 MG TAB PO SCH (19:07)
[2017-04-12] MEDS: FUROSEMIDE 20 MG TAB PO SCH (19:08)
[2017-04-12] MEDS: SERTRALINE 100 MG TAB PO SCH (21:15)
[2017-04-12] MEDS: TERAZOSIN 5 MG CAP PO SCH (21:15)
[2017-04-12] MEDS: LEVEMIR (INSULIN DETEMIR) 1 UNITS/0.01ML SC SCH (21:16)
[2017-04-12] MEDS: CYCLOBENZAPRINE 10 MG TAB PO PRN (21:34)
[2017-04-12 22:00] VITALS: BP 130/62
[2017-04-13] MEDS: VANCOMYCIN ORAL SOL 250MG/5ML ORAL SYRINGE PO SCH ×4 (00:04→17:46)
[2017-04-13] MEDS: HEPARIN SOD (PORCINE) 5000 UNITS/ML VIAL SC SCH ×3 (05:29→21:22)
[2017-04-13] MEDS: LevoFLOXacin 500 MG TABLET PO SCH (05:30)
[2017-04-13 05:47] LABS: BASO % 0.5 % (0.0-1.0); EOS # 0.2 K/mm3 (0.0-0.50); EOS % 3.7 % (0.0-3.0); LARGE UNSTAINED CELL # 0.1 K/mm3 (0.0-0.4); LARGE UNSTAINED CELL % 1.7 % (0.0-4.0); LYMPH # 1.1 K/mm3 (1.5-4.5); LYMPH % 20.1 % (24.0-44.0); MEAN CORPUSCULAR HEMOGLOBIN 29.4 pg (27.0-33.0); MEAN CORPUSCULAR HGB CONC 34.3 g/dl (32.0-36.5); MEAN CORPUSCULAR VOLUME 85.7 fl (80.0-96.0); MONO # 0.4 K/mm3 (0.0-0.8); MONO % 6.8 % (0.0-5.0); NEUTROPHILS # 3.7 K/mm3 (1.8-7.7); NEUTROPHILS % 67.2 % (36.0-66.0); PLATELET COUNT, AUTOMATED 209 k/mm3 (150-450); RED CELL DISTRIBUTION WIDTH 13.3 % (11.5-14.5); WHITE BLOOD COUNT 5.6 K/mm3 (4.0-10.0)
[2017-04-13 06:00] VITALS: BP 137/71
[2017-04-13 06:02] LABS: ANION GAP 8 MEQ/L (8-16); BLOOD UREA NITROGEN 14 MG/DL (7-18); CALCIUM LEVEL 8.9 MG/DL (8.8-10.2); CARBON DIOXIDE LEVEL 28 MEQ/L (21-32); CHLORIDE LEVEL 107 MEQ/L (98-107); CREATININE FOR GFR 0.72 MG/DL (0.70-1.30); GLOMERULAR FILTRATION RATE > 60.0 (>49); GLUCOSE, FASTING 154 MG/DL (80-110); POTASSIUM SERUM 3.9 MEQ/L (3.5-5.1); SODIUM LEVEL 143 MEQ/L (136-145)
[2017-04-13] MEDS: FINASTERIDE 5 MG TAB PO SCH (08:47)
[2017-04-13] MEDS: DOCUSATE SODIUM 100 MG CAP PO SCH ×2 (08:47→21:20)
[2017-04-13] MEDS: VITAMIN D 1,000 INTERNATIONAL UNITS TABLET PO SCH (08:47)
[2017-04-13] MEDS: MORPHINE 15 MG SA TAB PO SCH ×2 (08:48→21:22)
[2017-04-13] MEDS: ASPIRIN 81 MG ENTERIC TAB PO SCH (08:48)
[2017-04-13] MEDS: ASCORBIC ACID 500 MG TAB PO SCH (08:48)
[2017-04-13] MEDS: GABAPENTIN 300 MG CAP PO SCH ×2 (08:48→21:21)
[2017-04-13] MEDS: METOPROLOL TART 50 MG TAB PO SCH ×2 (08:51→21:21)
[2017-04-13] MEDS: LOSARTAN 50 MG TAB PO SCH (08:51)
[2017-04-13] MEDS: FUROSEMIDE 20 MG TAB PO SCH (08:52)
[2017-04-13] MEDS ORDERED: FIRS1SOL3 PO (11:15)
--- NOTE | 2017-04-13 12:14 | IPNPDOC ---
Text Note Date of Service The patient was seen on 04/13/17. NOTE Subjective: N/V/diarrhea resolved. Tolerating diet. Objective: Vitals: (see below) General: No acute distress, laying comfortably in bed. HEENT: Moist mucous membranes. Neck: No JVD or lymphadenopathy Cardiac: RRR, No murmurs Pulm: Diminished breath sounds at the bases b/l. No wheezing, rhonchi Abd: NT/ND + BS. Obese Ext: Trace edema bilateral lower extremities. No cyanosis. Labs (see below) Images: CT abdomen pelvis on 04/11/17 Impression: The previous sigmoid diverticulitis has resolved. There is no ascites or adenopathy. There is no bowel distension or obstruction. No pneumoperitoneum. No hydronephrosis. Otherwise, negative CT of the abdomen and pelvis. Assessment/Plan 1. Nausea and vomiting with a positive C. difficile- recently on Flagyl. Patient had completed 2 days of his ciprofloxacin for his UTI when he started to develop greenish diarrhea that was foul-smelling. GI panel with a positive C. difficile. Started on vancomycin by mouth. Renal function stable. No leukocytosis. 2. Enterococcus faecalis Escherichia coli - started on levofloxacin. Will have a short course of antibiotics given the C. difficile. 3. Insulin-dependent diabetes, type 2.-Levemir dose has been decreased, until patient's appetite increases.. s/p D5W for hypoglycemia on admission. 4. Hypertension- uncontrolled. Restart losartan and diuretic. 5. Chronic low back pain. Continue pain management 6. Depression and anxiety. Continue home meds 7. GERD. Continue home meds 8. BPH. Continue meds 9. Neuropathy. Continue home meds DVT prophy: Heparin subcutaneous Plan to discharge patient pending PT clearance. VS,Fishbone, I+O VS, Fishbone, I+O Laboratory Tests 04/13/17 05:33 Red Blood Count 4.14 L, Mean Corpuscular Volume 85.7, Mean Corpuscular Hemoglobin 29.4, Mean Corpuscular Hemoglobin Concent 34.3, Red Cell Distribution Width 13.3, Neutrophils (%) (Auto) 67.2 H, Lymphocytes (%) (Auto) 20.1 L, Monocytes (%) (Auto) 6.8 H, Eosinophils (%) (Auto) 3.7 H, Basophils (%) (Auto) 0.5, Neutrophils # (Auto) 3.7, Lymphocytes # (Auto) 1.1 L, Monocytes # ( Auto) 0.4, Eosinophils # (Auto) 0.2, Basophils # (Auto) 0.0, Calcium Level 8.9 Vital Signs Date Time Temp Pulse Resp B/P (MAP) Pulse Ox O2 Delivery O2 Flow Rate FiO2 04/13/17 09:00 Room Air 04/13/17 08:51 73 128/70 04/13/17 08:48 19 04/13/17 06:00 98.5 97 04/11/17 09:30 2.0 I&O- Last 24 Hours up to 6 AM 04/14/17 06:00 Intake Total 660 ml Output Total 650 ml Balance 10 ml HERMAN MAYNARD MD Apr 13, 2017 12:14
[2017-04-13 14:00] VITALS: BP 141/72
[2017-04-13] MEDS: CYCLOBENZAPRINE 10 MG TAB PO PRN (21:20)
[2017-04-13] MEDS: TERAZOSIN 5 MG CAP PO SCH (21:20)
[2017-04-13] MEDS: SERTRALINE 100 MG TAB PO SCH (21:21)
[2017-04-13] MEDS: LEVEMIR (INSULIN DETEMIR) 1 UNITS/0.01ML SC SCH (21:22)
[2017-04-13 22:00] VITALS: BP 124/60
[2017-04-14] MEDS: VANCOMYCIN ORAL SOL 250MG/5ML ORAL SYRINGE PO SCH ×5 (00:05→23:28)
[2017-04-14] MEDS: ACETAMINOPHEN TAB 650MG DOSE (2X325MG) PO PRN (00:09)
[2017-04-14] MEDS: LevoFLOXacin 500 MG TABLET PO SCH (05:51)
[2017-04-14] MEDS: HEPARIN SOD (PORCINE) 5000 UNITS/ML VIAL SC SCH ×3 (05:51→20:51)
[2017-04-14 06:00] VITALS: BP 127/71
[2017-04-14 06:36] LABS: BASO % 0.4 % (0.0-1.0); EOS # 0.2 K/mm3 (0.0-0.50); EOS % 3.7 % (0.0-3.0); LARGE UNSTAINED CELL # 0.1 K/mm3 (0.0-0.4); LARGE UNSTAINED CELL % 1.3 % (0.0-4.0); LYMPH # 1.1 K/mm3 (1.5-4.5); MEAN CORPUSCULAR HEMOGLOBIN 29.5 pg (27.0-33.0); MONO # 0.3 K/mm3 (0.0-0.8); MONO % 6.2 % (0.0-5.0); NEUTROPHILS # 3.4 K/mm3 (1.8-7.7); NEUTROPHILS % 67.3 % (36.0-66.0); PLATELET COUNT, AUTOMATED 192 k/mm3 (150-450); RED CELL DISTRIBUTION WIDTH 13.4 % (11.5-14.5)
[2017-04-14 06:41] LABS: ANION GAP 6 MEQ/L (8-16); BLOOD UREA NITROGEN 17 MG/DL (7-18); CALCIUM LEVEL 8.7 MG/DL (8.8-10.2); CARBON DIOXIDE LEVEL 32 MEQ/L (21-32); CHLORIDE LEVEL 103 MEQ/L (98-107); CREATININE FOR GFR 0.97 MG/DL (0.70-1.30); GLOMERULAR FILTRATION RATE > 60.0 (>49); GLUCOSE, FASTING 162 MG/DL (80-110); POTASSIUM SERUM 4.2 MEQ/L (3.5-5.1); SODIUM LEVEL 141 MEQ/L (136-145)
[2017-04-14] MEDS: ASPIRIN 81 MG ENTERIC TAB PO SCH (07:52)
[2017-04-14] MEDS: FUROSEMIDE 20 MG TAB PO SCH (07:52)
[2017-04-14] MEDS: FINASTERIDE 5 MG TAB PO SCH (07:52)
[2017-04-14] MEDS: MORPHINE 15 MG SA TAB PO SCH ×2 (07:54→20:54)
[2017-04-14] MEDS: VITAMIN D 1,000 INTERNATIONAL UNITS TABLET PO SCH (07:57)
[2017-04-14] MEDS: ASCORBIC ACID 500 MG TAB PO SCH (07:57)
[2017-04-14] MEDS: LOSARTAN 50 MG TAB PO SCH (07:57)
[2017-04-14] MEDS: METOPROLOL TART 50 MG TAB PO SCH ×2 (07:57→20:52)
[2017-04-14] MEDS: GABAPENTIN 300 MG CAP PO SCH ×2 (07:57→20:51)
[2017-04-14] MEDS: DOCUSATE SODIUM 100 MG CAP PO SCH ×2 (07:58→20:53)
[2017-04-14] MEDS ORDERED: LEVA1TAB2 PO (12:03)
--- NOTE | 2017-04-14 13:08 | IPNPDOC ---
Text Note Date of Service The patient was seen on 04/14/17. NOTE Subjective: Feels well. Tolerating diet. Working with PT. Objective: Vitals: (see below) General: No acute distress, laying comfortably in bed. HEENT: Moist mucous membranes. Neck: No JVD or lymphadenopathy Cardiac: RRR, No murmurs Pulm: Diminished breath sounds at the bases b/l. No wheezing, rhonchi Abd: NT/ND + BS. Obese Ext: Trace edema bilateral lower extremities. No cyanosis. Labs (see below) Images: CT abdomen pelvis on 04/11/17 Impression: The previous sigmoid diverticulitis has resolved. There is no ascites or adenopathy. There is no bowel distension or obstruction. No pneumoperitoneum. No hydronephrosis. Otherwise, negative CT of the abdomen and pelvis. Assessment/Plan 1. Nausea and vomiting with a positive C. difficile- recently on Flagyl. Patient had completed 2 days of his ciprofloxacin for his UTI when he started to develop greenish diarrhea that was foul-smelling. GI panel with a positive C. difficile. Started on vancomycin by mouth. Renal function stable. No leukocytosis. 2. Enterococcus faecalis Escherichia coli - started on levofloxacin. Will have a short course of antibiotics given the C. difficile. 3. Insulin-dependent diabetes, type 2.-Levemir dose has been decreased, until patient's appetite increases.. s/p D5W for hypoglycemia on admission. 4. Hypertension- uncontrolled. Restart losartan and diuretic. 5. Chronic low back pain. Continue pain management 6. Depression and anxiety. Continue home meds 7. GERD. Continue home meds 8. BPH. Continue meds 9. Neuropathy. Continue home meds DVT prophy: Heparin subcutaneous Plan to discharge patient pending PT clearance. VS,Fishbone, I+O VS, Fishbone, I+O Laboratory Tests 04/14/17 06:05 Red Blood Count 4.04 L, Mean Corpuscular Volume 87.0, Mean Corpuscular Hemoglobin 29.5, Mean Corpuscular Hemoglobin Concent 34.0, Red Cell Distribution Width 13.4, Neutrophils (%) (Auto) 67.3 H, Lymphocytes (%) (Auto) 21.0 L, Monocytes (%) (Auto) 6.2 H, Eosinophils (%) (Auto) 3.7 H, Basophils (%) (Auto) 0.4, Neutrophils # (Auto) 3.4, Lymphocytes # (Auto) 1.1 L, Monocytes # ( Auto) 0.3, Eosinophils # (Auto) 0.2, Basophils # (Auto) 0.0, Calcium Level 8.7 L Vital Signs Date Time Temp Pulse Resp B/P (MAP) Pulse Ox O2 Delivery O2 Flow Rate FiO2 04/14/17 07:57 138/62 04/14/17 07:57 72 04/14/17 07:54 18 04/14/17 06:00 97.7 96 Room Air 04/11/17 09:30 2.0 I&O- Last 24 Hours up to 6 AM 04/15/17 06:00 Intake Total 300 ml Output Total 650 ml Balance -350 ml HERMAN MAYNARD MD Apr 14, 2017 13:08
[2017-04-14 14:00] VITALS: BP 143/69
[2017-04-14 20:40] VITALS: BP 127/62
[2017-04-14] MEDS: TERAZOSIN 5 MG CAP PO SCH (20:52)
[2017-04-14] MEDS: SERTRALINE 100 MG TAB PO SCH (20:53)
[2017-04-14] MEDS: LEVEMIR (INSULIN DETEMIR) 1 UNITS/0.01ML SC SCH (20:55)
[2017-04-14] MEDS: CYCLOBENZAPRINE 10 MG TAB PO PRN (21:00)
[2017-04-15] MEDS: HEPARIN SOD (PORCINE) 5000 UNITS/ML VIAL SC SCH ×3 (05:37→22:07)
[2017-04-15] MEDS: VANCOMYCIN ORAL SOL 250MG/5ML ORAL SYRINGE PO SCH ×3 (05:37→18:30)
[2017-04-15] MEDS: LevoFLOXacin 500 MG TABLET PO SCH (05:37)
[2017-04-15 06:08] LABS: BASO % 0.4 % (0.0-1.0); EOS # 0.2 K/mm3 (0.0-0.50); EOS % 4.4 % (0.0-3.0); LARGE UNSTAINED CELL # 0.1 K/mm3 (0.0-0.4); LARGE UNSTAINED CELL % 1.5 % (0.0-4.0); LYMPH # 1.1 K/mm3 (1.5-4.5); LYMPH % 22.4 % (24.0-44.0); MEAN CORPUSCULAR HEMOGLOBIN 29.5 pg (27.0-33.0); MEAN CORPUSCULAR VOLUME 86.6 fl (80.0-96.0); MONO # 0.4 K/mm3 (0.0-0.8); NEUTROPHILS # 3.2 K/mm3 (1.8-7.7); NEUTROPHILS % 64.3 % (36.0-66.0); PLATELET COUNT, AUTOMATED 170 k/mm3 (150-450); RED CELL DISTRIBUTION WIDTH 13.4 % (11.5-14.5)
[2017-04-15 06:20] VITALS: BP 128/75
[2017-04-15 06:29] LABS: ANION GAP 7 MEQ/L (8-16); BLOOD UREA NITROGEN 18 MG/DL (7-18); CALCIUM LEVEL 9.1 MG/DL (8.8-10.2); CARBON DIOXIDE LEVEL 32 MEQ/L (21-32); CHLORIDE LEVEL 99 MEQ/L (98-107); CREATININE FOR GFR 0.84 MG/DL (0.70-1.30); GLOMERULAR FILTRATION RATE > 60.0 (>49); GLUCOSE, FASTING 200 MG/DL (80-110); POTASSIUM SERUM 4.2 MEQ/L (3.5-5.1); SODIUM LEVEL 138 MEQ/L (136-145)
[2017-04-15] MEDS: ASPIRIN 81 MG ENTERIC TAB PO SCH (08:26)
[2017-04-15] MEDS: VITAMIN D 1,000 INTERNATIONAL UNITS TABLET PO SCH (08:26)
[2017-04-15] MEDS: MORPHINE 15 MG SA TAB PO SCH ×2 (08:27→22:02)
[2017-04-15] MEDS: METOPROLOL TART 50 MG TAB PO SCH ×2 (08:27→22:06)
[2017-04-15] MEDS: ASCORBIC ACID 500 MG TAB PO SCH (08:28)
[2017-04-15] MEDS: LOSARTAN 50 MG TAB PO SCH (08:28)
[2017-04-15] MEDS: GABAPENTIN 300 MG CAP PO SCH ×2 (08:28→22:05)
[2017-04-15] MEDS: FINASTERIDE 5 MG TAB PO SCH (08:28)
[2017-04-15] MEDS: DOCUSATE SODIUM 100 MG CAP PO SCH ×2 (08:28→22:02)
[2017-04-15] MEDS: FUROSEMIDE 20 MG TAB PO SCH (08:28)
[2017-04-15 14:00] VITALS: BP 126/63
--- NOTE | 2017-04-15 15:51 | IPNPDOC ---
Text Note Date of Service The patient was seen on 04/15/17. NOTE Subjective: Feels well. Tolerating diet. Working with PT. No diarrhea. Objective: Vitals: (see below) General: No acute distress, laying comfortably in bed. HEENT: Moist mucous membranes. Neck: No JVD or lymphadenopathy Cardiac: RRR, No murmurs Pulm: Diminished breath sounds at the bases b/l. No wheezing, rhonchi Abd: NT/ND + BS. Obese Ext: Trace edema bilateral lower extremities. No cyanosis. Labs (see below) Images: CT abdomen pelvis on 04/11/17 Impression: The previous sigmoid diverticulitis has resolved. There is no ascites or adenopathy. There is no bowel distension or obstruction. No pneumoperitoneum. No hydronephrosis. Otherwise, negative CT of the abdomen and pelvis. Assessment/Plan 1. Nausea and vomiting with a positive C. difficile- recently on Flagyl. Patient had completed 2 days of his ciprofloxacin for his UTI when he started to develop greenish diarrhea that was foul-smelling. GI panel with a positive C. difficile. Started on vancomycin by mouth. Renal function stable. No leukocytosis. 2. Enterococcus faecalis Escherichia coli - started on levofloxacin. Will have a short course of antibiotics given the C. difficile. 3. Insulin-dependent diabetes, type 2.-Levemir dose has been decreased, until patient's appetite increases.. s/p D5W for hypoglycemia on admission. 4. Hypertension- uncontrolled. Restart losartan and diuretic. 5. Chronic low back pain. Continue pain management 6. Depression and anxiety. Continue home meds 7. GERD. Continue home meds 8. BPH. Continue meds 9. Neuropathy. Continue home meds DVT prophy: Heparin subcutaneous Plan to discharge patient pending PT clearance and acquiring [facility]. Script written. VS,Fishbone, I+O VS, Fishbone, I+O Laboratory Tests 04/15/17 05:31 Red Blood Count 4.05 L, Mean Corpuscular Volume 86.6, Mean Corpuscular Hemoglobin 29.5, Mean Corpuscular Hemoglobin Concent 34.0, Red Cell Distribution Width 13.4, Neutrophils (%) (Auto) 64.3, Lymphocytes (%) (Auto) 22.4 L, Monocytes (%) (Auto) 7.0 H, Eosinophils (%) (Auto) 4.4 H, Basophils (%) (Auto) 0.4, Neutrophils # (Auto) 3.2, Lymphocytes # (Auto) 1.1 L, Monocytes # ( Auto) 0.4, Eosinophils # (Auto) 0.2, Basophils # (Auto) 0.0, Calcium Level 9.1 Vital Signs Date Time Temp Pulse Resp B/P (MAP) Pulse Ox O2 Delivery O2 Flow Rate FiO2 04/15/17 14:00 97.8 76 18 126/63 (84) 94 Room Air 04/11/17 09:30 2.0 I&O- Last 24 Hours up to 6 AM 04/16/17 06:00 Intake Total 1080 ml Output Total 0 ml Balance 1080 ml HERMAN MAYNARD MD Apr 15, 2017 15:51
[2017-04-15] MEDS: ACETAMINOPHEN TAB 650MG DOSE (2X325MG) PO PRN (15:58)
[2017-04-15 20:25] VITALS: BP 145/76
[2017-04-15] MEDS: SERTRALINE 100 MG TAB PO SCH (22:01)
[2017-04-15] MEDS: TERAZOSIN 5 MG CAP PO SCH (22:05)
[2017-04-15] MEDS: LEVEMIR (INSULIN DETEMIR) 1 UNITS/0.01ML SC SCH (22:07)
[2017-04-15] MEDS: CYCLOBENZAPRINE 10 MG TAB PO PRN (22:13)
[2017-04-16] MEDS: VANCOMYCIN ORAL SOL 250MG/5ML ORAL SYRINGE PO SCH ×3 (00:18→12:17)
[2017-04-16] MEDS ORDERED: MIRALAX *UNIT DOSE* 17GM PACKET PO PRN (02:15)
[2017-04-16 05:20] VITALS: BP 124/64
[2017-04-16] MEDS: LevoFLOXacin 500 MG TABLET PO SCH (05:40)
[2017-04-16] MEDS: HEPARIN SOD (PORCINE) 5000 UNITS/ML VIAL SC SCH (05:41)
[2017-04-16 06:26] LABS: BASO % 0.5 % (0.0-1.0); EOS # 0.2 10^3/uL (0.0-0.50); EOS % 3.4 % (0.0-3.0); IMMATURE GRANULOCYTE % 0.2 % (0-0); LYMPH # 1.2 10^3/uL (1.5-4.5); LYMPH % 22.3 % (24.0-44.0); MEAN CORPUSCULAR HEMOGLOBIN 28.4 pg (27.0-33.0); MEAN CORPUSCULAR HGB CONC 32.6 g/dl (32.0-36.5); MEAN CORPUSCULAR VOLUME 87.3 fl (80.0-96.0); MONO # 0.5 10^3/uL (0.0-0.8); MONO % 9.7 % (0.0-5.0); NEUTROPHILS # 3.5 10^3/uL (1.8-7.7); NEUTROPHILS % 63.9 % (36.0-66.0); PLATELET COUNT, AUTOMATED 164 10^3/uL (150-450); RED CELL DISTRIBUTION WIDTH 13.5 % (11.5-14.5); WHITE BLOOD COUNT 5.6 10^3/uL (4.0-10.0)
[2017-04-16 06:50] LABS: ANION GAP 5 MEQ/L (8-16); BLOOD UREA NITROGEN 16 MG/DL (7-18); CALCIUM LEVEL 9.4 MG/DL (8.8-10.2); CARBON DIOXIDE LEVEL 35 MEQ/L (21-32); CHLORIDE LEVEL 96 MEQ/L (98-107); CREATININE FOR GFR 0.79 MG/DL (0.70-1.30); GLOMERULAR FILTRATION RATE > 60.0 (>49); GLUCOSE, FASTING 218 MG/DL (80-110); POTASSIUM SERUM 3.7 MEQ/L (3.5-5.1); SODIUM LEVEL 136 MEQ/L (136-145)
[2017-04-16] MEDS: GABAPENTIN 300 MG CAP PO SCH (08:56)
[2017-04-16] MEDS: METOPROLOL TART 50 MG TAB PO SCH (08:57)
[2017-04-16] MEDS: ACETAMINOPHEN TAB 650MG DOSE (2X325MG) PO PRN (08:57)
[2017-04-16 08:58] VITALS: BP 150/78
[2017-04-16] MEDS: MORPHINE 15 MG SA TAB PO SCH (08:58)
[2017-04-16] MEDS: VITAMIN D 1,000 INTERNATIONAL UNITS TABLET PO SCH (08:58)
[2017-04-16] MEDS: DOCUSATE SODIUM 100 MG CAP PO SCH (08:58)
[2017-04-16] MEDS: LOSARTAN 50 MG TAB PO SCH (08:58)
[2017-04-16] MEDS: FINASTERIDE 5 MG TAB PO SCH (08:58)
[2017-04-16] MEDS: ASCORBIC ACID 500 MG TAB PO SCH (08:59)
[2017-04-16] MEDS: ASPIRIN 81 MG ENTERIC TAB PO SCH (08:59)
[2017-04-16] MEDS: FUROSEMIDE 20 MG TAB PO SCH (08:59)
--- NOTE | 2017-04-16 14:01 | IPNPDOC ---
Text Note Date of Service The patient was seen on 04/16/17. NOTE Subjective: Patient is a 67 year old male with a PMHx of IDDM2, HTN, BPH, Neuropathy, Chronic Lower back pain, Depression / Anxiety and GERD, as well as a recently placed Hinton catheter for urinary retention, who presented to the ER with complaints of nausea for 6 days. He originally presented to the ER on 04/06 for abdominal pain found to have urinary retention and impacted bowel. Patient was sent home after a Hinton catheter was placed and was disimpacted. He was sent home with Ciprofloxacin. Patient returned to the ER again with nausea and multiple green stools. Was found to have C. diff. Patient was seen and examined at the bedside. He denied any new problems. Objective: Vitals (See below) General: Lying in bed, no acute distress, comfortable, AAOx3 HEENT: NC, AT CVS: RRR, +S1S2 Lungs: Fair air entry b/l, -w/r/r Abdomen: Soft, ND, NT, Obese Extremities: - Edema, - Calf tenderness Assessment and plan: Nausea and Vomiting associated with Diarrhea - likely 2/2 C. difficile colitis - Presented with nausea and vomiting that progressed to greenish colored diarrhea - Physical unrevealing - No leukocytosis - GI panel 04/11: Positive for C. diff - UA 04/11 consistent with infection; Urine Culture 04/06: E. Faecalis - CT abdomen / pelvis 04/11: sigmoid diverticulitis resolved, no ascites or adenopathy, - s/p Levaquin (5 days antibiotics) - c/w Vancomycin PO - Awaiting for approval of antibiotics as outpatient Dysuria - 2/2 E. Faecalis UTI - s/p Levaquin (5 day course) IDDM2 - c/w ISS and Levemir - Levemir dose was reduced 2/2 poor appetite HTN - c/w Losartan, Metoprolol and Furosemide Chronic low back pain - c/w Percocet, MS Contin and Cyclobenzaprine Depression / Anxiety - c/w Sertraline BPH - c/w Terazosin and Finasteride Neuropathy - c/w Gabapentin GERD - c/w Omeprazole DVT prophylaxis - c/w Heparin Disposition: - Awaiting approval of Vancomycin PO outpatient VS,Kita, I+O VS, Kita, I+O Laboratory Tests 04/16/17 05:30 Red Blood Count 4.01 L, Mean Corpuscular Volume 87.3, Mean Corpuscular Hemoglobin 28.4, Mean Corpuscular Hemoglobin Concent 32.6, Red Cell Distribution Width 13.5, Neutrophils (%) (Auto) 63.9, Lymphocytes (%) (Auto) 22.3 L, Monocytes (%) (Auto) 9.7 H, Eosinophils (%) (Auto) 3.4 H, Basophils (%) (Auto) 0.5, Neutrophils # (Auto) 3.5, Lymphocytes # (Auto) 1.2 L, Monocytes # ( Auto) 0.5, Eosinophils # (Auto) 0.2, Basophils # (Auto) 0.0, Calcium Level 9.4 Vital Signs Date Time Temp Pulse Resp B/P (MAP) Pulse Ox O2 Delivery O2 Flow Rate FiO2 04/16/17 09:40 Room Air 04/16/17 08:58 150/78 04/16/17 08:58 20 04/16/17 05:20 97.9 83 94 04/11/17 09:30 2.0 I&O- Last 24 Hours up to 6 AM 04/17/17 06:00 Intake Total 1080 ml Output Total 700 ml Balance 380 ml BAUTISTA MASCORRO MD Apr 16, 2017 13:51
--- NOTE | 2017-04-17 15:03 | DSES ---
DATE OF ADMISSION: 04/11/2017 DATE OF DISCHARGE: 04/16/2017 ATTENDING PHYSICIAN: Brisa Montiel MD, and Guevara Paniagua MD PRIMARY CARE PHYSICIAN: Sachin Aguirre MD REFERRING PHYSICIAN: None. CONSULTING PHYSICIAN: None. CONDITION ON DISCHARGE: Stable. FINAL DIAGNOSIS: Nausea and vomiting associated with diarrhea, secondary Clostridium (C) difficile colitis, dysuria, secondary enterococcus faecalis. PROCEDURES: None. HISTORY OF PRESENT ILLNESS: The patient is a 67-year-old male with a past medical history of insulin-dependent diabetes mellitus type 2, hypertension, benign prostatic hypertrophy (BPH), neuropathy, chronic lower back, depression, anxiety, and gastroesophageal reflux disease (GERD), as well as a recently placed Hinton catheter for urinary retention, who presented to the emergency room (ER) with complaints of nausea for 6 days. He originally presented to the ER on 04/06/2017 for abdominal pain, found to have urinary retention and impacted bowel. The patient was sent home after Hinton catheter was placed and was disimpacted. He was sent home with ciprofloxacin. The patient returned to the ER with nausea and multiple green stools, was found to have C. difficile colitis. HOSPITAL COURSE: 1. Nausea and vomiting associated with diarrhea, likely secondary to C. difficile colitis. Presented with nausea and vomiting that progressed to greenish-colored diarrhea. The physical was unrevealing. No leukocytosis. Gastrointestinal (GI) panel on 04/11/2017 was positive for C. difficile colitis. Urinalysis (UA) on 04/11/2017 was consistent with infection. Urine cultures on 04/06/2017 were positive for enterococcus faecalis. At abdomen and pelvis on 04/11/2017 indicated that there was sigmoid diverticulitis, which was resolved, no ascites or adenopathy. The patient was status post Levaquin for 5 days antibiotic course for his urinary tract infection (UTI). He was continued with vancomycin by mouth for C. difficile colitis, and necessary steps were taken for approval of antibiotics as an outpatient. 2. Dysuria secondary to enterococcus faecalis urinary tract infection, status postoperative Levaquin for 5 days. 3. Insulin-dependent diabetes mellitus type 2. Continue with insulin sliding scale and Levemir. Levemir dose was reduced secondary to poor appetite. 4. Hypertension. Continue with losartan, metoprolol, and furosemide. 5. Chronic low back pain. Continue with Percocet, MS Contin, and cyclobenzaprine. 6. Depression and anxiety. Continue with sertraline. 7. Benign prostatic hypertrophy. Continue with terazosin and finasteride. 8. Neuropathy. Continue with gabapentin 9. Gastroesophageal reflux disease (GERD). Continue with omeprazole. 10. Deep venous thrombosis (DVT) prophylaxis. Continue with heparin. DISCHARGE MEDICATIONS: The patient was discharged home with the following medications: - ascorbic acid 500 mg by mouth daily - aspirin 81 mg by mouth daily - carboxymethylcellulose one drop in each eye twice a day - colecalciferol 1000 units by mouth daily - vitamin B12 1000 mcg by mouth twice a day - cyclobenzaprine 10 mg by mouth every 6 hours as needed muscle spasms - docusate 100 mg by mouth twice a day - finasteride 5 mg by mouth daily - furosemide 60 mg by mouth daily - gabapentin 300 mg by mouth twice a day - insulin aspart to be taken as directed - insulin glargine to be taken as directed - losartan 100 mg by mouth daily - metformin 1000 mg by mouth twice a day - metoclopramide 10 mg by mouth every 6 as needed nausea - metoprolol 25 mg by mouth twice a day - naproxen 500 mg by mouth twice a day - omeprazole 40 mg by mouth daily as needed heartburn - pitavastatin 4 mg by mouth nightly - sertraline 100 mg by mouth nightly - terazosin 10 mg by mouth nightly - vitamin E 1000 units by mouth nightly Stopped medications include: - morphine sulfate 15 mg by mouth twice a day - Percocet two tablets by mouth every 4 hours as needed moderate to severe pain New medications prescribed include: - vancomycin 125 mg by mouth every 6 hours to be taken for the completion of antibiotic course DISCHARGE INSTRUCTIONS: The patient has been advised to followup with his primary care provider within the next 7 days. He has been advised to remain compliant with treatment and the above medications and return to the emergency room if he experiences any problems. TIME SPENT ON DISCHARGE: Greater than 35 minutes.
[2017-06-04] MEDS ORDERED: VITA500T3 PO (10:31)
[2017-06-04] MEDS ORDERED: GABA-282 PO (10:31)
== END 2017-04-16 13:48 | disposition home or self-care (01) ==
LOC: M ED 08:32 → M ED INP 15:34 → M MSPAV 17:10
PROVIDERS: ADMIT General Practice; ATTEND Internal Medicine
DX: A04.7 Enterocolitis due to Clostridium difficile (principal); B95.2 Enterococcus as the cause of diseases classified elsewhere; Z79.4 Long term (current) use of insulin; R30.0 Dysuria; I10 Essential (primary) hypertension; M54.5 Low back pain; N40.0 Benign prostatic hyperplasia without lower urinary tract symptoms; E11.40 Type 2 diabetes mellitus with diabetic neuropathy, unspecified; F32.9 Major depressive disorder, single episode, unspecified; F41.9 Anxiety disorder, unspecified; Z79.82 Long term (current) use of aspirin; Z79.899 Other long term (current) drug therapy
CPT/HCPCS: 36415; 74177; 80048; 80076; 81001; 82550; 82553; 83036; 83690; 83735; 84443; 84484; 85025; 87507; 93005; 93041; 96361; 96365; 96368; 96375; 96376; 97161; 97530; 99285; G0378; G8978; G8979; G8980; J1956; J2405; J3475; Q9967

== ENCOUNTER → 2017-04-26 | Outpatient (REF) | payer MEDICARE, OTHER ==
[~2017-04-26] MED LIST changes: +FIRS1SOL3 PO; +LEVA1TAB2 PO; +VITA500T3 PO
== END ==
LOC: M SMT 09:50
PROVIDERS: ATTEND Nurse Practitioner Women's Health
DX: N39.0 Urinary tract infection, site not specified (principal)

== ENCOUNTER → 2017-05-13 | Outpatient (REF) | payer MEDICARE, OTHER | LOC: M LAB REF 09:37 | PROVIDERS: ATTEND Nurse Practitioner Family | DX: N39.0 Urinary tract infection, site not specified (principal) ==

== ENCOUNTER → 2017-05-22 | Outpatient (CLI) | payer MEDICARE, OTHER | LOC: M SMT 10:37 | PROVIDERS: ATTEND Nurse Practitioner Family | DX: Z12.5 Encounter for screening for malignant neoplasm of prostate (principal) | CPT/HCPCS: 36415; 51798; G0103; G0463 ==

== ENCOUNTER 2017-06-12 08:03 | Day surgery (SDC) | payer MEDICARE, OTHER ==
[~2017-06-12] VITALS: Ht 177.8 cm; Wt 151.2 kg
[~2017-06-12 08:03] MED LIST changes: +NS 1,000 ML IV ONE; +PROPOFOL 200 MG/20 ML VIAL As Ordered ONE
--- NOTE | 2017-06-12 09:57 | ROOR ---
Patient Name: Perry Mark Procedure Date: 06/12/2017 9:04 AM Date of : 1950 Age: 67 Room: [facility] Gender: Male Note Status: Finalized Procedure: Colonoscopy Indications: Abnormal CT of the GI tract, Suspected diverticulitis Providers: Turner Cabrera MD Referring MD: Gonz[facility] CRU[facility] Gonzalo CRUZ [facility], Admin. Requesting Provider: Medicines: Monitored Anesthesia Care Complications: No immediate complications. Procedure: Pre-Anesthesia Assessment: - Prior to the procedure, a History and Physical was performed, and patient medications and allergies were reviewed. The patient is competent. The risks and benefits of the procedure and the sedation options and risks were discussed with the patient. All questions were answered and informed consent was obtained. Patient identification and proposed procedure were verified by the physician, the nurse and the anesthesiologist in the endoscopy suite. Mental Status Examination: alert and oriented. Airway Examination: normal oropharyngeal airway and neck mobility. Respiratory Examination: clear to auscultation. CV Examination: normal. Prophylactic Antibiotics: The patient does not require prophylactic antibiotics. Prior Anticoagulants: The patient has taken aspirin, last dose was day of procedure. ASA Grade Assessment: II - A patient with mild systemic disease. After reviewing the risks and benefits, the patient was deemed in satisfactory condition to undergo the procedure. The anesthesia plan was to use monitored anesthesia care (MAC). Immediately prior to administration of medications, the patient was re-assessed for adequacy to receive sedatives. The heart rate, respiratory rate, oxygen saturations, blood pressure, adequacy of pulmonary ventilation, and response to care were monitored throughout the procedure. The physical status of the patient was re-assessed after the procedure. The Colonoscope was introduced through the anus and advanced to the cecum, identified by appendiceal orifice and ileocecal valve. The colonoscopy was technically difficult and complex due to a tortuous colon and the patient's body habitus. The patient tolerated the procedure well. The quality of the bowel preparation was excellent. Findings: The perianal exam findings include skin tags. Multiple small and large-mouthed diverticula were found in the sigmoid colon, transverse colon, hepatic flexure, ascending colon and cecum. There was no evidence of diverticular bleeding. A 5 mm polyp was found in the ascending colon. The polyp was semi-pedunculated. The polyp was removed with a hot snare. Resection and retrieval were complete. Estimated blood loss: none. The ileocecal valve was mildly lipomatous. This was biopsied with a cold forceps for histology. Estimated blood loss was minimal. A 1 mm polyp was found in the rectum. The polyp was pedunculated. The polyp was removed with a hot snare. Resection and retrieval were complete. Estimated blood loss: none. Impression: - Perianal skin tags found on perianal exam. - Moderate diverticulosis in the sigmoid colon, in the transverse colon, at the hepatic flexure, in the ascending colon and in the cecum. There was no evidence of diverticular bleeding. - One 5 mm polyp in the ascending colon, removed with a hot snare. Resected and retrieved. - Lipomatous ileocecal valve. Biopsied. - One 1 mm polyp in the rectum, removed with a hot snare. Resected and retrieved. Recommendation: - Repeat colonoscopy in 3 years for surveillance based on pathology results. - Await pathology results. - Telephone my office for pathology results in 2 weeks. Turner Cabrera MD Turner Cabrera MD 06/12/2017 9:56:50 AM This report has been signed electronically. Number of Addenda: 0 Note Initiated On: 06/12/2017 9:04 AM Estimated Blood Loss: Estimated blood loss: none.
[2017-06-12 10:15] VITALS: BP 157/84
== END 2017-06-12 10:27 | disposition home or self-care (01) ==
LOC: M OPP 08:03
PROVIDERS: ATTEND Surgery
DX: R93.3 Abnormal findings on diagnostic imaging of other parts of digestive tract (principal); R10.84 Generalized abdominal pain; R19.4 Change in bowel habit; K57.32 Diverticulitis of large intestine without perforation or abscess without bleeding; D12.2 Benign neoplasm of ascending colon; K62.1 Rectal polyp; K63.89 Other specified diseases of intestine; K64.4 Residual hemorrhoidal skin tags; K57.30 Diverticulosis of large intestine without perforation or abscess without bleeding; I10 Essential (primary) hypertension; E78.5 Hyperlipidemia, unspecified; E10.9 Type 1 diabetes mellitus without complications; F32.9 Major depressive disorder, single episode, unspecified; Z86.19 Personal history of other infectious and parasitic diseases; R06.02 Shortness of breath; M19.90 Unspecified osteoarthritis, unspecified site; G47.30 Sleep apnea, unspecified; R06.83 Snoring; N40.1 Benign prostatic hyperplasia with lower urinary tract symptoms; Z96.642 Presence of left artificial hip joint; Z79.82 Long term (current) use of aspirin; Z79.899 Other long term (current) drug therapy; Z88.1 Allergy status to other antibiotic agents; Z87.891 Personal history of nicotine dependence

== ENCOUNTER → 2018-05-22 | Outpatient (CLI) | payer MEDICARE, OTHER ==
[2018-05-22 14:31] LABS: PSA SCREENING 1.31 NG/ML (< 4.0)
== END ==
LOC: M SMT 10:23
DX: Z12.5 Encounter for screening for malignant neoplasm of prostate (principal)
CPT/HCPCS: G0103

== ENCOUNTER → 2019-11-20 | Outpatient (REF) | payer MEDICARE, OTHER ==
[~2019-11-20] MED LIST changes: +CYAN500T8 PO; +CYCL-707 PO; -CYCL10TA PO; -FIRS1SOL3 PO; +FIRS50SO PO; -GABA-282 PO; +GABA-843 PO; -LOSA100T36 PO; +LOSA100T50 PO; +NAPR-885 PO; -NAPR500T3 PO; -NS 1,000 ML IV ONE; +OMEP1CAP73 PO; -OMEP20CA3 PO; -PROPOFOL 200 MG/20 ML VIAL As Ordered ONE; -VITA500T3 PO
== END ==
LOC: M SFHCADAM 14:00
PROVIDERS: ATTEND Nurse Practitioner Family
DX: Z12.5 Encounter for screening for malignant neoplasm of prostate (principal)

== ENCOUNTER → 2020-12-02 | Outpatient (CLI) | payer MEDICARE, OTHER ==
[~2020-12-02] MED LIST changes: +ASPI-569 PO; -ASPI81TAEC PO; +CYAN500T14 PO; -CYAN500T8 PO; +GABA-282 PO; -GABA-843 PO
== END ==
LOC: M LABSMTC 10:16
PROVIDERS: ATTEND Anesthesiology
DX: Z01.812 Encounter for preprocedural laboratory examination (principal); Z20.822 Contact with and (suspected) exposure to COVID-19

== ENCOUNTER 2020-12-07 10:14 | Day surgery (SDC) | payer MEDICARE, OTHER ==
[~2020-12-07] VITALS: Ht 172.7 cm; Wt 145.6 kg
[~2020-12-07 10:14] MED LIST changes: +NS 1,000 ML IV ONE
[2020-12-07] MEDS ORDERED: propofoL 200 MG/20 ML VIAL As Ordered ONE ×3 (12:06→12:52)
[2020-12-07] MEDS ORDERED: LIDOCAINE 2% 100MG/5ML SDV (FOR ANES.) As Ordered ONE (12:06)
--- NOTE | 2020-12-07 13:05 | ROOR ---
Patient Name: Perry Mark Procedure Date: 12/07/2020 12:21 PM Date of : 1950 Age: 70 Room: [facility] Gender: Male Note Status: Finalized Procedure: Colonoscopy Indications: High risk colon cancer surveillance: Personal history of colonic polyps Providers: Turner Cabrera MD Referring MD: Sachin Agiurre MD Requesting Provider: Medicines: Monitored Anesthesia Care Complications: No immediate complications. Procedure: Pre-Anesthesia Assessment: - Prior to the procedure, a History and Physical was performed, and patient medications and allergies were reviewed. The patient is competent. The risks and benefits of the procedure and the sedation options and risks were discussed with the patient. All questions were answered and informed consent was obtained. Patient identification and proposed procedure were verified by the physician, the nurse and the anesthesiologist in the endoscopy suite. Mental Status Examination: alert and oriented. Airway Examination: normal oropharyngeal airway and neck mobility. Respiratory Examination: clear to auscultation. CV Examination: normal. Prophylactic Antibiotics: The patient does not require prophylactic antibiotics. Prior Anticoagulants: The patient has taken no previous anticoagulant or antiplatelet agents except for aspirin. ASA Grade Assessment: III - A patient with severe systemic disease. After reviewing the risks and benefits, the patient was deemed in satisfactory condition to undergo the procedure. The anesthesia plan was to use monitored anesthesia care (MAC). Immediately prior to administration of medications, the patient was re-assessed for adequacy to receive sedatives. The heart rate, respiratory rate, oxygen saturations, blood pressure, adequacy of pulmonary ventilation, and response to care were monitored throughout the procedure. The physical status of the patient was re-assessed after the procedure. The Colonoscope was introduced through the anus and advanced to the cecum, identified by appendiceal orifice and ileocecal valve. The colonoscopy was somewhat difficult due to the patient's body habitus. The quality of the bowel preparation was good. Findings: The perianal and digital rectal examinations were normal. Many medium-mouthed diverticula were found in the sigmoid colon, descending colon, transverse colon and ascending colon. There was no evidence of diverticular bleeding. A 3 mm polyp was found in the ascending colon. The polyp was sessile. The polyp was removed with a jumbo cold forceps. Resection and retrieval were complete. Estimated blood loss was minimal. Two sessile polyps were found in the sigmoid colon. The polyps were 2 to 3 mm in size. These polyps were removed with a cold snare. Resection and retrieval were complete. Estimated blood loss was minimal. Two sessile polyps were found in the rectum. The polyps were 2 to 4 mm in size. These polyps were removed with a cold snare. Resection and retrieval were complete. Estimated blood loss was minimal. The retroflexed view of the distal rectum and anal verge was normal and showed no anal or rectal abnormalities. Impression: - Moderate diverticulosis in the sigmoid colon, in the descending colon, in the transverse colon and in the ascending colon. There was no evidence of diverticular bleeding. - One 3 mm polyp in the ascending colon, removed with a jumbo cold forceps. Resected and retrieved. - Two 2 to 3 mm polyps in the sigmoid colon, removed with a cold snare. Resected and retrieved. - Two 2 to 4 mm polyps in the rectum, removed with a cold snare. Resected and retrieved. - The distal rectum and anal verge are normal on retroflexion view. Recommendation: - Discharge patient to home (ambulatory). - High fiber diet indefinitely. - Repeat colonoscopy in 3 - 5 years for surveillance of multiple polyps. - Telephone my office for pathology results in 1 week. Procedure Code(s): --- Professional --- 01152, Colonoscopy, flexible; with removal of tumor(s), polyp(s), or other lesion(s) by snare technique 65434, 59, Colonoscopy, flexible; with biopsy, single or multiple Diagnosis Code(s): --- Professional --- Z86.010, Personal history of colonic polyps K63.5, Polyp of colon K62.1, Rectal polyp K57.30, Diverticulosis of large intestine without perforation or abscess without bleeding CPT copyright 2019 [employer]. All rights reserved. The codes documented in this report are preliminary and upon bonderizer operator review may be revised to meet current compliance requirements. Turner Cabrera MD Turner Cabrera MD 12/07/2020 1:04:39 PM Electronically signed by Turner Cabrera MD Number of Addenda: 0 Note Initiated On: 12/07/2020 12:21 PM Estimated Blood Loss: Estimated blood loss was minimal.
[2020-12-07 13:27] VITALS: BP 126/60
== END 2020-12-07 13:29 | disposition home or self-care (01) ==
LOC: M OPP 10:14
PROVIDERS: ATTEND Surgery
DX: Z12.11 Encounter for screening for malignant neoplasm of colon (principal); Z86.010 Personal history of colon polyps; K63.5 Polyp of colon; K62.1 Rectal polyp; K57.30 Diverticulosis of large intestine without perforation or abscess without bleeding; Z87.891 Personal history of nicotine dependence; Z79.4 Long term (current) use of insulin; Z79.82 Long term (current) use of aspirin; Z79.899 Other long term (current) drug therapy

== ENCOUNTER → 2021-01-24 | Outpatient (REF) | payer MEDICARE, OTHER ==
[~2021-01-24] MED LIST changes: -NS 1,000 ML IV ONE
== END ==
LOC: M SFHCADAM 10:47
PROVIDERS: ATTEND Nurse Practitioner Family
DX: Z12.5 Encounter for screening for malignant neoplasm of prostate (principal)

== ENCOUNTER → 2021-04-13 | Outpatient (REF) | payer MEDICARE, OTHER | LOC: M SFHCADAM 16:35 | PROVIDERS: ATTEND Family Medicine | DX: R09.81 Nasal congestion (principal); Z20.822 Contact with and (suspected) exposure to COVID-19 | CPT/HCPCS: 87426; G0463; U0003 ==

== ENCOUNTER → 2021-10-25 | Outpatient (CLI) | payer MEDICARE, OTHER ==
[~2021-10-25] MED LIST changes: +D-101000 PO; +LOSA100T45 PO; -LOSA100T50 PO; +VITA-175 PO
== END ==
LOC: M LABSMTC 11:25
PROVIDERS: ATTEND Anesthesiology
DX: Z01.818 Encounter for other preprocedural examination (principal); Z11.52 Encounter for screening for COVID-19

== ENCOUNTER → 2021-12-06 | Outpatient (CLI) | payer MEDICARE, OTHER ==
[~2021-12-06] MED LIST changes: +TRUL0.5I SC
== END ==
LOC: M LABSMTC 10:08
PROVIDERS: ATTEND Anesthesiology
DX: Z01.812 Encounter for preprocedural laboratory examination (principal)

== ENCOUNTER 2021-12-11 06:25 | Day surgery (SDC) | payer OTHER ==
[~2021-12-11] VITALS: Ht 177.8 cm; Wt 170.7 kg
[2021-12-11] MEDS ORDERED: LIDOCAINE 1% SDV 5ML VIAL As Ordered ONE (06:34)
[2021-12-11] MEDS ORDERED: ACETYLCHOLINE OPHTH SOLN 1% 2ML (MIOCHOL-E) As Ordered ONE (06:34)
[2021-12-11] MEDS ORDERED: PROPARACAINE 0.5% OPHTH SOL 15ML OS ONE (06:40)
[2021-12-11] MEDS: PHENYLEPHRINE 2.5% OPHTH SOL 2ML OS SCH ×3 (07:06→07:30)
[2021-12-11] MEDS: OFLOXACIN 0.3 % (OCUFLOX) OPTH SOL 5ML OS SCH ×3 (07:07→07:30)
[2021-12-11] MEDS: TROPICAMIDE 1% OPHTH SOLN 2ML OS SCH ×3 (07:07→07:30)
[2021-12-11] MEDS ORDERED: MIDAZOLAM INJ 2MG/2ML VIAL (J2250 PER 1MG) As Ordered ONE (07:38)
[2021-12-11] MEDS ORDERED: fentaNYL 100 MCG/2 ML INJECTION As Ordered ONE (07:38)
[2021-12-11] MEDS ORDERED: ONDANSETRON 4MG/2ML VIAL IV PRN (08:20)
[2021-12-11] MEDS ORDERED: INSULIN LISPRO (NovoLOG) PER UNIT SC PRN ×2 (08:20→11:10)
[2021-12-11 09:01] VITALS: BP 154/82
== END 2021-12-11 09:21 | disposition home or self-care (01) ==
LOC: M SDC 06:25
PROVIDERS: ATTEND Ophthalmology
DX: H25.12 Age-related nuclear cataract, left eye (principal); I10 Essential (primary) hypertension; E11.9 Type 2 diabetes mellitus without complications; E78.5 Hyperlipidemia, unspecified; G47.33 Obstructive sleep apnea (adult) (pediatric); Z79.4 Long term (current) use of insulin; Z79.84 Long term (current) use of oral hypoglycemic drugs; Z79.82 Long term (current) use of aspirin; Z79.899 Other long term (current) drug therapy
CPT/HCPCS: 66984; J2250; J3010; V2632

== ENCOUNTER → 2022-01-18 | Outpatient (CLI) | payer OTHER | LOC: M SOG 08:17 | PROVIDERS: ATTEND Orthopaedic Surgery Adult Reconstructive Orthopaedic Surgery | DX: M17.11 Unilateral primary osteoarthritis, right knee (principal) ==

== ENCOUNTER → 2022-03-08 | Outpatient (CLI) | payer OTHER ==
[~2022-03-08] MED LIST changes: +ACET650T61 PO; +LEXA5TAB13
== END ==
LOC: M LABSMTC 10:53
PROVIDERS: ATTEND Anesthesiology
DX: Z11.52 Encounter for screening for COVID-19 (principal)

== ENCOUNTER 2022-03-12 06:54 | Day surgery (SDC) | payer OTHER ==
[~2022-03-12] VITALS: Ht 177.8 cm; Wt 171.2 kg
[~2022-03-12 06:54] MED LIST changes: -ACET650T61 PO; -LEXA5TAB13; +LIDOCAINE 1% SDV 5ML VIAL As Ordered ONE; +TETRACAINE 0.5% OPHTH SOLN 4ML OD SCH
[2022-03-12] MEDS ORDERED: LR 1,000 ML IV SCH (07:00)
[2022-03-12] MEDS ORDERED: LEXA5TAB13 (07:30)
[2022-03-12] MEDS ORDERED: ACET650T61 PO (07:30)
[2022-03-12] MEDS: FLURBIPROFEN 0.03% OPHTH SOLN 2.5 ML OD SCH ×2 (07:33→07:40)
[2022-03-12] MEDS: CYCLOPENTOLATE 1% OPHTH SOLN 2 ML BTL OD SCH ×2 (07:33→07:40)
[2022-03-12] MEDS: PHENYLEPHRINE 2.5% OPHTH SOL 2ML OD SCH ×2 (07:33→07:40)
[2022-03-12] MEDS ORDERED: MIDAZOLAM INJ 2MG/2ML VIAL (J2250 PER 1MG) As Ordered ONE (07:34)
[2022-03-12] MEDS ORDERED: fentaNYL 100 MCG/2 ML INJECTION As Ordered ONE (07:34)
[2022-03-12 08:50] VITALS: BP 126/67
== END 2022-03-12 09:08 | disposition home or self-care (01) ==
LOC: M SDC 06:54
PROVIDERS: ATTEND Ophthalmology
DX: H25.11 Age-related nuclear cataract, right eye (principal); I10 Essential (primary) hypertension; E11.9 Type 2 diabetes mellitus without complications; Z79.899 Other long term (current) drug therapy; Z79.84 Long term (current) use of oral hypoglycemic drugs; Z79.2 Long term (current) use of antibiotics; Z79.4 Long term (current) use of insulin; Z79.1 Long term (current) use of non-steroidal anti-inflammatories (NSAID); Z96.649 Presence of unspecified artificial hip joint
CPT/HCPCS: 66984; J2250; J3010; V2632

== ENCOUNTER → 2022-04-25 | Outpatient (CLI) | payer OTHER ==
[~2022-04-25] MED LIST changes: +ACET650T61 PO; +BUPIVACAINE HCL 0.5% 30ML VIAL As Ordered ONE; +ISOVUE-300 61% 50ML VIAL As Ordered ONE; +LEXA5TAB13; -LIDOCAINE 1% SDV 5ML VIAL As Ordered ONE; -TETRACAINE 0.5% OPHTH SOLN 4ML OD SCH; +methylPREDNISolone 80MG/ML SUSP 1ML VIAL (J1040) As Ordered ONE
== END ==
LOC: M RAD 12:49
PROVIDERS: ATTEND Orthopaedic Surgery Adult Reconstructive Orthopaedic Surgery
DX: M17.2 Bilateral post-traumatic osteoarthritis of knee (principal)
CPT/HCPCS: 76000; J1040; Q9967

== ENCOUNTER → 2022-04-30 | Outpatient (CLI) | payer OTHER ==
[~2022-04-30] MED LIST changes: +LIDOCAINE 1% MDV 20ML VIAL As Ordered ONE
== END ==
LOC: M RAD 11:53
PROVIDERS: ATTEND Orthopaedic Surgery Adult Reconstructive Orthopaedic Surgery
DX: M17.2 Bilateral post-traumatic osteoarthritis of knee (principal)
CPT/HCPCS: 76000; J1040; Q9967

== ENCOUNTER → 2022-09-28 | Outpatient (CLI) | payer MEDICARE, OTHER ==
[~2022-09-28] MED LIST changes: +**SFHN** BUPIVACAINE HCL 0.5% 10ML VIAL ONE; +**SFHN** LIDOCAINE 1% MDV 20ML VIAL ONE; -BUPIVACAINE HCL 0.5% 30ML VIAL As Ordered ONE; +ISOVUE-300 61% 100ML VIAL ONE; -ISOVUE-300 61% 50ML VIAL As Ordered ONE; -LIDOCAINE 1% MDV 20ML VIAL As Ordered ONE; -methylPREDNISolone 80MG/ML SUSP 1ML VIAL (J1040) As Ordered ONE; +methylPREDNISolone 80MG/ML SUSP 1ML VIAL ONE
== END ==
LOC: M PLAIMG 11:59
PROVIDERS: ATTEND Orthopaedic Surgery Adult Reconstructive Orthopaedic Surgery
DX: M17.0 Bilateral primary osteoarthritis of knee (principal)
CPT/HCPCS: 20610; 77002; J1040; Q9967

== ENCOUNTER → 2022-10-03 | Outpatient (CLI) | payer MEDICARE, OTHER | LOC: M PLAIMG 12:49 | PROVIDERS: ATTEND Orthopaedic Surgery Adult Reconstructive Orthopaedic Surgery | DX: M17.0 Bilateral primary osteoarthritis of knee (principal) | CPT/HCPCS: 20610; 77002; J1040; Q9967 ==

== ENCOUNTER → 2023-12-18 | Outpatient (REF) | payer OTHER, MEDICARE ==
[~2023-12-18] MED LIST changes: -**SFHN** BUPIVACAINE HCL 0.5% 10ML VIAL ONE; -**SFHN** LIDOCAINE 1% MDV 20ML VIAL ONE; -ISOVUE-300 61% 100ML VIAL ONE; -LOSA100T45 PO; +LOSA100T46 PO; -methylPREDNISolone 80MG/ML SUSP 1ML VIAL ONE
== END ==
LOC: M SFHCADAM 12:16
PROVIDERS: ATTEND Physician Assistant
DX: J06.9 Acute upper respiratory infection, unspecified (principal)